=== PATIENT | female | born 1950 | race Caucasian/White ===

== ENCOUNTER → 2018-03-20 | Outpatient (CLI) | payer OTHER | END | disposition home or self-care (01) | LOC: PLD 07:59 → LAB SHORT 07:59 | DX: N84.0 Polyp of corpus uteri (principal); N84.1 Polyp of cervix uteri; N95.0 Postmenopausal bleeding | CPT/HCPCS: 88305 ==

== ENCOUNTER 2018-11-27 11:46 | Day surgery (SDC) | payer OTHER ==
[~2018-11-27] VITALS: Ht 152.4 cm; Wt 50.4 kg
[2018-11-27] MEDS ORDERED: OXYB5 (12:18)
[2018-11-27] MEDS ORDERED: ANASTROZOLE5 GM (12:18)
== END 2018-11-27 13:50 | disposition home or self-care (01) ==
LOC: ORSCSDS 11:46
PROVIDERS: Surgery
PROC: 0DJ08ZZ Inspection of Upper Intestinal Tract, Via Natural or Artificial Opening Endoscopic (ICD-10-PCS; principal; 2018-11-27 13:00)
DX: Z85.09 Personal history of malignant neoplasm of other digestive organs (principal); G47.30 Sleep apnea, unspecified; E78.00 Pure hypercholesterolemia, unspecified; E78.5 Hyperlipidemia, unspecified; G47.33 Obstructive sleep apnea (adult) (pediatric); Z79.82 Long term (current) use of aspirin; Z79.899 Other long term (current) drug therapy
CPT/HCPCS: J7120

== ENCOUNTER → 2019-05-14 | Outpatient (CLI) | payer OTHER ==
[~2019-05-14] MED LIST: ANASTROZOLE5 GM; OXYB5
[2019-05-14 13:01] LABS: Appearance, Urine Clear (Clear); Bilirubin, Urine Neg (Neg); Blood, Urine 3+ (Neg); Color, Urine Yellow (P-Yellow); Glucose Qualitative, Urine Neg (Neg); Ketones, Urine Neg (Neg); Leukocyte Esterase, Urine 3+ (Neg); Nitrite, Urine Pos (Neg); Protein, Urine 1+ (Neg); Urobilinogen, Urine NORM (Normal)
[2019-05-14 13:30] LABS: Bacteria Many /hpf; Squamous Epithelial Cells Rare /hpf (Few)
[2019-05-14 13:31] LABS: Mucus Light ({null, 0-Heavy})
== END | disposition home or self-care (01) ==
LOC: LAB SRC 09:00 → LAB SHORT 09:00
PROVIDERS: Registered Nurse
DX: R31.9 Hematuria, unspecified (principal)
CPT/HCPCS: 81001; 87077; 87086; 87186

== ENCOUNTER → 2019-07-05 | Outpatient (CLI) | payer OTHER ==
[2019-07-05 19:41] LABS: Appearance, Urine Clear (Clear); Bilirubin, Urine Neg (Neg); Blood, Urine Neg (Neg); Color, Urine Yellow (P-Yellow); Glucose Qualitative, Urine Neg (Neg); Ketones, Urine Neg (Neg); Leukocyte Esterase, Urine 2+ (Neg); Nitrite, Urine Neg (Neg); Protein, Urine Neg (Neg); Specific Gravity, Urine 1.005 (1.003-1.022); Urobilinogen, Urine NORM (Normal)
[2019-07-05 19:43] LABS: Bacteria Few /hpf; Red Blood Cells, Urine 0-2 /hpf (0-2); Squamous Epithelial Cells Few /hpf (Few)
== END | disposition home or self-care (01) ==
LOC: LAB SHORT 18:39 → LAB 18:39
PROVIDERS: Registered Nurse
DX: R82.998 Other abnormal findings in urine (principal)
CPT/HCPCS: 81001; 87077; 87086; 87186

== ENCOUNTER → 2019-10-18 | Outpatient (CLI) | payer OTHER ==
[2019-10-18 13:41] LABS: Bilirubin, Urine Neg (Neg); Blood, Urine Neg (Neg); Glucose Qualitative, Urine Neg (Neg); Ketones, Urine Neg (Neg); Leukocyte Esterase, Urine Neg (Neg); Nitrite, Urine Neg (Neg); Protein, Urine Neg (Neg); Urobilinogen, Urine NORM (Normal)
[2019-10-18 14:22] LABS: Appearance, Urine Clear (Clear); Color, Urine Yellow (P-Yellow)
== END | disposition home or self-care (01) ==
LOC: LAB SHORT 10:45 → LAB 10:45
PROVIDERS: Family Medicine
DX: R35.0 Frequency of micturition (principal); R82.998 Other abnormal findings in urine
CPT/HCPCS: 81003

== ENCOUNTER 2019-12-23 06:01 | Day surgery (SDC) | payer OTHER ==
[~2019-12-23] VITALS: Ht 152.4 cm; Wt 47.5 kg
[~2019-12-23 06:01] MED LIST changes: -ANASTROZOLE5 GM; +ANASTROZOLE5 GM PO; -OXYB5; +OXYB5 PO
== END 2019-12-23 10:18 | disposition home or self-care (01) ==
LOC: ORSCMMR 06:01 → ORD 07:30 → ORSCMMR 10:18
PROVIDERS: Surgery
PROC: 07B60ZX Excision of Left Axillary Lymphatic, Open Approach, Diagnostic (ICD-10-PCS; principal; 2019-12-23 07:30)
DX: C77.3 Secondary and unspecified malignant neoplasm of axilla and upper limb lymph nodes (principal); Z85.3 Personal history of malignant neoplasm of breast; Z79.899 Other long term (current) drug therapy
CPT/HCPCS: 88305; J0690; J1100; J1885; J2250; J2405; J2704; J3010; J7120; Q9968

== ENCOUNTER 2020-01-20 10:55 | Day surgery (SDC) | payer OTHER ==
[~2020-01-20] VITALS: Ht 152.4 cm; Wt 48.0 kg
[2020-01-20] MEDS ORDERED: PROBIOTIC250 MG (11:18)
[2020-01-20] MEDS ORDERED: Hair, Skin & N1 EACH PO (11:18)
[2020-01-20] MEDS ORDERED: METAMUCIL660 GM (11:19)
--- NOTE | 2020-01-20 14:34 | NUR ---
DISCHARGE Patient up to Ambulate independently. Gait steady. Discharge instructions reviewed with patient. Patient verbalizes understanding. Copy given to patient to take home. Dressing to procedure site clean, dry, intact with no visible drainage, swelling, erythema or bruising noted. Patient States Post-Procedure ride home has been arranged. Discharged via wheelchair to private car for ride home. PT STATES PAIN IS GETTING A LITTLE BETTER PT DENIES N/V HARD COPY OF RX GIVEN TO PT
--- NOTE | 2020-01-21 10:17 | NUR ---
01/21/20 1017 Swati Savage VERIFICATIONS: EDIT CHART.
== END 2020-01-20 22:45 | disposition home or self-care (01) ==
LOC: ORSCMMR 10:55 → ORD 12:30 → ORSCMMR 12:30
PROVIDERS: Surgery
PROC: 0JH60WZ Insertion of Totally Implantable Vascular Access Device into Chest Subcutaneous Tissue and Fascia, Open Approach (ICD-10-PCS; principal; 2020-01-20 12:30)
DX: C77.9 Secondary and unspecified malignant neoplasm of lymph node, unspecified (principal); G47.33 Obstructive sleep apnea (adult) (pediatric); E78.00 Pure hypercholesterolemia, unspecified
CPT/HCPCS: 77001; C1788; J0690; J1100; J1642; J2250; J2405; J2704; J7120

== ENCOUNTER → 2020-02-04 | Outpatient (CLI) | payer OTHER ==
[~2020-02-04] MED LIST changes: +Hair, Skin & N1 EACH PO; +METAMUCIL660 GM; +PROBIOTIC250 MG
[2020-02-04 15:23] LABS: Hematocrit 33.1 % (33.0-51.0); Hemoglobin 10.7 g/dL (11.5-16.0); Mean Corpuscular HGB Conc 32.3 g/dL (31.5-36.5); Mean Platelet Volume 9.1 fL (9.1-12.4); NRBC ABSOLUTE 0.08 K/mm3 (0.00-0.02); NRBC Auto 0.4 /100 WBC (0.0-0.2); Platelet Count 249 K/mm3 (150-400); RDW Coefficient Variation 12.8 % (11.7-14.2); RDW Standard Deviation 43.9 fL (35.1-46.3); Red Blood Cell Count 3.45 M/mm3 (3.80-5.20)
[2020-02-04 15:24] LABS: Mean Corpuscular Volume 96 fL (80-100)
[2020-02-04 15:49] LABS: BAND PERCENT MAN 14 % (0-8); BASOPHILS PERCENT MAN 0 % (0-2); EOSINOPHILS PERCENT MAN 0 % (0-6); LYMPHOCYTES ABSOLUTE MAN 0.44 K/mm3 (0.84-5.20); LYMPHOCYTES PERCENT MAN 2 % (21-46); METAMYELOCYTE ABSOLUTE MAN 0.44 K/mm3 (0.00-0.00); METAMYELOCYTE PERCENT MAN 2 % (0-0); MONOCYTES ABSOLUTE MAN 0.66 K/mm3 (0.16-1.47); MONOCYTES PERCENT MAN 3 % (4-13); MYELOCYTE ABSOLUTE MAN 0.44 K/mm3 (0.00-0.00); MYELOCYTE PERCENT MAN 2 % (0-0); NEUTROPHILS ABSOLUTE MAN 20.11 K/mm3 (1.96-9.15); SEG NEUTROPHILS PERCENT MAN 77 % (41-73); TOTAL CELLS COUNTED 100
== END | disposition home or self-care (01) ==
LOC: LAB 14:59 → LAB SHORT 14:59
PROVIDERS: Internal Medicine Hematology & Oncology
DX: C50.919 Malignant neoplasm of unspecified site of unspecified female breast (principal)
CPT/HCPCS: 85025

== ENCOUNTER 2020-02-26 07:46 | Day surgery (SDC) | payer OTHER ==
[~2020-02-26] VITALS: Ht 149.9 cm; Wt 46.9 kg
--- NOTE | 2020-02-26 08:48 | NUR ---
Ambulatory in Day Surgery. Surgical site prepped with 2% Chlorhexidine cloth wipe. History, Chart, Medications and Allergies reviewed before start of procedure. Lungs clear T/O to Auscultation. Patient confirms NPO status and agrees with scheduled surgery. Patient reports completing Chlorhexadine shower X2 prior to admission to hospital. Pre-Op teaching done. Pt verbalizes understanding. Patient States Post-Procedure ride home has been arranged.
--- NOTE | 2020-02-26 12:57 | NUR ---
Dressing to procedure site clean, dry, intact with no visible drainage, swelling, erythema or bruising noted. TOLERATED PO WELL. Patient States Post-Procedure ride home has been arranged. Discharge instructions reviewed with patient. Patient verbalizes understanding. Copy given to patient to take home.
== END 2020-02-26 12:38 | disposition home or self-care (01) ==
LOC: ORSCMMR 07:46 → ORD 09:15 → ORSCMMR 09:15
PROVIDERS: Surgery
PROC: 05HM33Z Insertion of Infusion Device into Right Internal Jugular Vein, Percutaneous Approach (ICD-10-PCS; principal; 2020-02-26 09:15)
PROC: B5131ZA Fluoroscopy of Right Jugular Veins using Low Osmolar Contrast, Guidance (ICD-10-PCS; principal; 2020-02-26 09:15)
DX: T82.524A Displacement of infusion catheter, initial encounter (principal); Z85.3 Personal history of malignant neoplasm of breast; G47.33 Obstructive sleep apnea (adult) (pediatric); Z79.899 Other long term (current) drug therapy
CPT/HCPCS: 77001; C1788; J0690; J1100; J1642; J2250; J2370; J2405; J2704; J3010; J7120

== ENCOUNTER → 2020-06-16 | Outpatient (CLI) | payer OTHER | LOC: LAB SHORT 13:11 → LAB 13:11 | DX: L08.9 Local infection of the skin and subcutaneous tissue, unspecified (principal); D22.61 Melanocytic nevi of right upper limb, including shoulder; D22.62 Melanocytic nevi of left upper limb, including shoulder; L60.9 Nail disorder, unspecified; L82.1 Other seborrheic keratosis; D22.5 Melanocytic nevi of trunk; D22.71 Melanocytic nevi of right lower limb, including hip; D22.72 Melanocytic nevi of left lower limb, including hip; D18.01 Hemangioma of skin and subcutaneous tissue; D36.14 Benign neoplasm of peripheral nerves and autonomic nervous system of thorax; D36.12 Benign neoplasm of peripheral nerves and autonomic nervous system, upper limb, including shoulder; L81.4 Other melanin hyperpigmentation; Z71.89 Other specified counseling; Z80.8 Family history of malignant neoplasm of other organs or systems | CPT/HCPCS: 87070; 87077; 87186; 87205 ==

== ENCOUNTER → 2021-03-12 | Outpatient (CLI) | payer OTHER ==
[2021-03-12 14:51] LABS: C DIFFICILE DNA NEGATIVE (Negative)
[2021-03-12 20:49] LABS: Adenovirus F 40/41 Not Detected (NOT DETECT); Astrovirus Not Detected (NOT DETECT); Campylobacter Sp Not Detected (NOT DETECT); Cryptosporidium Not Detected (NOT DETECT); Cyclospora Cayetanensis Not Detected (NOT DETECT); E. Coli O157 Not Detected (NOT DETECT); Entamoeba Histolytica Not Detected (NOT DETECT); Enteroaggregative E. coli-EAEC Not Detected (NOT DETECT); Enteropathogenic E. coli-EPEC Not Detected (NOT DETECT); Enterotoxigenic E. coli-ETEC Not Detected (NOT DETECT); Giardia Lamblia Not Detected (NOT DETECT); Norovirus GI/GII Not Detected (NOT DETECT); Plesiomonas Shigelloides Not Detected (NOT DETECT); Rotavirus A Not Detected (NOT DETECT); Salmonella Sp Not Detected (NOT DETECT); Sapovirus Not Detected (NOT DETECT); Shiga Toxin-prod E. coli-STEC Not Detected (NOT DETECT); Shigella/Enteroin E. coli-EIEC Not Detected (NOT DETECT); Vibrio Cholerae Not Detected (NOT DETECT); Vibrio Sp Not Detected (NOT DETECT); Yersinia Enterocolitica Not Detected (NOT DETECT)
== END | disposition home or self-care (01) ==
LOC: LAB SHORT 08:00
PROVIDERS: Family Medicine; Registered Nurse Oncology
DX: R19.7 Diarrhea, unspecified (principal)
CPT/HCPCS: 0097U; 87015; 87045; 87046; 87205; 87324; 87493; 87899

== ENCOUNTER → 2021-04-06 | Outpatient (CLI) | payer OTHER | LOC: LAB SHORT 17:40 → LAB 17:40 | DX: N39.0 Urinary tract infection, site not specified (principal) | CPT/HCPCS: 87077; 87086; 87186 ==

== ENCOUNTER 2021-11-22 10:30 | Emergency (ER) | payer OTHER ==
[~2021-11-22] VITALS: Ht 152.4 cm; Wt 47.6 kg
[2021-11-22 12:05] LABS: Influenza A, PCR NEGATIVE (NEGATIVE); Influenza B, PCR NEGATIVE (NEGATIVE); Resp Syncytial Virus, PCR NEGATIVE (NEGATIVE); SARS-Cov-2 (COVID-19) PCR, MMC NEGATIVE (NEGATIVE)
[2022-01-08] MEDS ORDERED: VISBIOME 112.51 EACH PO (14:23)
[2022-01-08] MEDS ORDERED: CEFD300 PO (14:24)
[2022-01-08] MEDS ORDERED: ANASTROZOLE1 M7 PO (14:26)
[2022-01-19] MEDS ORDERED: IBRANCE100 MG PO (13:04)
[2022-01-19] MEDS ORDERED: BENZ100A PO (13:04)
[2022-01-19] MEDS ORDERED: MORPHINE SL (13:06)
[2022-01-19] MEDS ORDERED: Prednisone10 MG PO (13:07)
[2022-02-14] MEDS ORDERED: ANASTROZOLE1 M7 PO (16:30)
[2022-02-14] MEDS ORDERED: Morphine S10 MG/5 ML PO (16:31)
[2022-02-14] MEDS ORDERED: Ondansetron Odt8 MG MM (16:32)
[2022-02-14] MEDS ORDERED: POTCHL20ER PO (16:34)
[2022-02-14] MEDS ORDERED: IBRANCE100 M1 PO (16:36)
[2022-02-14] MEDS ORDERED: TRAM50 PO (16:37)
== END 2021-11-22 14:00 | disposition home or self-care (01) ==
LOC: ER 10:30
PROVIDERS: Emergency Medicine
DX: J90 Pleural effusion, not elsewhere classified (principal); Z20.822 Contact with and (suspected) exposure to COVID-19; Z88.5 Allergy status to narcotic agent; Z88.8 Allergy status to other drugs, medicaments and biological substances; C50.912 Malignant neoplasm of unspecified site of left female breast; C50.812 Malignant neoplasm of overlapping sites of left female breast
CPT/HCPCS: 0241U; 32555; 36415; 71045; 71046; 85610; 85730; 96372; 99285-25; A9270; J3010

== ENCOUNTER 2021-12-31 10:30 | Emergency (ER) | payer OTHER ==
[~2021-12-31] VITALS: Ht 152.4 cm; Wt 46.3 kg
[2021-12-31 11:26] LABS: Hematocrit 33.1 % (33.0-51.0); Hemoglobin 11.6 g/dL (11.5-16.0); Mean Corpuscular HGB 35.2 pg (26.0-34.0); Mean Corpuscular Volume 100 fL (80-100); Mean Platelet Volume 9.6 fL (9.1-12.4); Platelet Count 196 K/mm3 (150-400); RDW Coefficient Variation 20.6 % (11.7-14.2); White Blood Cell Count 1.91 K/mm3 (4.00-11.30)
[2021-12-31 11:50] LABS: Alanine Aminotransfer (ALT/SGP 21 U/L (12-78); Albumin, Blood 2.7 g/dL (3.4-5.0); Albumin/Globulin Ratio 0.8 (0.8-1.8); Alk Phos 57 U/L (50-136); Anion Gap 6 mmol/L (6-16); Aspartate Aminotrans (AST/SGOT 16 U/L (12-37); Bilirubin, Total 0.6 mg/dL (0.1-1.0); Blood Urea Nitrogen 13 mg/dL (8-24); CO2, Blood 28 mmol/L (21-32); Chloride, Blood 104 mmol/L (98-108); Creatinine, Blood 0.81 mg/dL (0.40-1.00); Globulin, Blood 3.6 g/dL (2.2-4.0); Glomerular Filtration Rate >60 (60-); Glucose, Blood 88 mg/dL (70-99); Sodium, Blood 138 mmol/L (136-145); Total Protein, Blood 6.3 g/dL (6.4-8.2)
[2021-12-31 12:06] LABS: BAND PERCENT MAN 1 % (0-8); BASOPHILS ABSOLUTE MAN 0.01 K/mm3 (0.00-0.23); BASOPHILS PERCENT MAN 1 % (0-2); EOSINOPHILS PERCENT MAN 0 % (0-6); LYMPHOCYTES ABSOLUTE MAN 0.76 K/mm3 (0.84-5.20); LYMPHOCYTES PERCENT MAN 40 % (21-46); MONOCYTES ABSOLUTE MAN 0.03 K/mm3 (0.16-1.47); MONOCYTES PERCENT MAN 2 % (4-13); NEUTROPHILS ABSOLUTE MAN 1.08 K/mm3 (1.96-9.15); SEG NEUTROPHILS PERCENT MAN 56 % (41-73); TOTAL CELLS COUNTED 100
[2021-12-31 13:19] LABS: International Normalized Ratio 1.04; Prothrombin Time Results 10.9 Sec (9.7-11.5)
[2021-12-31 14:16] LABS: Influenza A, PCR NEGATIVE (NEGATIVE); Influenza B, PCR NEGATIVE (NEGATIVE); Resp Syncytial Virus, PCR NEGATIVE (NEGATIVE); SARS-Cov-2 (COVID-19) PCR, MMC NEGATIVE (NEGATIVE)
== END 2021-12-31 17:40 | disposition home or self-care (01) ==
LOC: ER 10:30
PROVIDERS: Emergency Medicine; Physician Assistant
DX: J90 Pleural effusion, not elsewhere classified (principal); C34.90 Malignant neoplasm of unspecified part of unspecified bronchus or lung; Z20.822 Contact with and (suspected) exposure to COVID-19; Z88.6 Allergy status to analgesic agent; Z88.5 Allergy status to narcotic agent; Z79.899 Other long term (current) drug therapy; C50.919 Malignant neoplasm of unspecified site of unspecified female breast
CPT/HCPCS: 0241U; 32555; 36415; 71045; 71046; 80053; 83880; 84484; 85025; 85610; 85730; 93005; 93010; 96374; 99285-25; J3010

== ENCOUNTER → 2022-01-04 | Outpatient (CLI) | payer OTHER | END | disposition home or self-care (01) | LOC: LAB SHORT 10:38 → LAB 10:38 | DX: M54.50 Low back pain, unspecified (principal); R30.9 Painful micturition, unspecified | CPT/HCPCS: 87077; 87086; 87186 ==

== ENCOUNTER 2022-01-20 07:23 | Day surgery (SDC) | payer OTHER ==
[~2022-01-20] VITALS: Ht 152.4 cm; Wt 45.3 kg
[~2022-01-20 07:23] MED LIST changes: +ANASTROZOLE1 M7 PO; +BENZ100A PO; +CEFD300 PO; +IBRANCE100 MG PO; +MORPHINE SL; +Prednisone10 MG PO; +VISBIOME 112.51 EACH PO
[2022-01-20] MEDS ORDERED: POTA10T PO (08:45)
[2022-01-20] MEDS ORDERED: FURO40 PO (08:45)
--- NOTE | 2022-01-20 11:43 | NUR ---
PT AXOX4, ABLE TO REPOSITION SELF IN BED. REQUESTING PO FLUIDS AND FOOD. PT STATES 1/10 ACHING PAIN IN R NECK OVER INCISION SITE. PATIENT HAS THREE INCISION SITES, ONE ON NECK THAT IS COVERED WITH TWO STERI STRIPS THAT ARE DRY AND INTACT WITH SCANT AMOUNT OF DRY SANGUINEOUS MATERIAL. ONE DRESSING OVER SECOND PROCEDURE SITE (MEDIPORT) ON RIGHT CHEST THAT IS 2X2 GAUZE COVERED WITH CLEAR WINDOW TAPE AND IT IS CLEAN, DRY AND INTACT. ONE MORE INCISION SITE IS ON LEFT ABDOMEN FOR PLEURX CATHETER, HAS FOAM DRESSING WITH WINDOW TAPE AND IS CLEAN, DRY AND INTACT.
--- NOTE | 2022-01-20 11:49 | NUR ---
PT IS RESTING COMFORTABLY IN BED TOLERATING PO FLUIDS AND FOOD. PT CAME TO STEPDOWN ON 4 L O2 NASAL CANNULA. OXYGEN SATS SUSTAIN IN MID 90'S WHILE PATIENT HAS NASAL CANNULA ON, DROPS TO MID 80'S IF SHE REMOVES IT AFTER ONE MINUTE.
--- NOTE | 2022-01-20 12:22 | NUR ---
PT RESTING IN BED, VISITING WITH AT BEDSIDE. PT IS AXOX4, ABLE TO REPOSITION IN BED. PATIENTS LUNGS ARE CLEAR BILATERALLY, LEFT LUNG IS DIMINISHED THROUGHOUT.
--- NOTE | 2022-01-20 12:52 | NUR ---
KERRI AYOUB RN FROM [facility] IN TO EDUCATE PT AND ON PLEURX CATH.
--- NOTE | 2022-01-20 12:53 | NUR ---
DRESSING TO MEDIPORT D/I. SMALL AMOUNT OF RED DRAINAGE ON PLEURX CATH SITE.
--- NOTE | 2022-01-20 15:18 | NUR ---
Pt in OR getting a pleurex drain placed. Pt had left lung pleurex placed. Carola realys more shortness of breath and difficulty getting in for treatment. Review of pleurex drain with and pt. Pt does not have home health set up. Review of all three agencies and the need for early intake. Pt would like [facility] and if not available who ever come. She has a friend who used to work for [facility]. Called [facility] they are not taking appointments at this time. [facility] is three weeks out. Called dr vega office to review and [facility] is ok. Review of pt with [facility] intake nurse. If pt fails this last medication she will need hospice. [facility] symptom managment and pleurex managment. Advised that if [facility] cannot manage need to schedule appointment at infusion clinic and Staff from clinic will drain pt. And we will repeat teaching. will follow up with pt and packet faxed. Advised Dr ernandez office to fax information they will need to provide perscription for volume and frequency since pt not seen at surgeons office.
--- NOTE | 2022-01-20 15:53 | NUR ---
Called doctor namrata office to review plan of care and set up for pleurex care.
== END 2022-01-20 13:40 | disposition home or self-care (01) ==
LOC: ORSCMMR 07:23 → ORD 07:30 → ORSCMMR 08:45 → ORD 08:45 → ORSCMMR 13:40
PROVIDERS: Surgery
PROC: 0W9B30Z Drainage of Left Pleural Cavity with Drainage Device, Percutaneous Approach (ICD-10-PCS; principal; 2022-01-20 08:45)
PROC: 0JH60WZ Insertion of Totally Implantable Vascular Access Device into Chest Subcutaneous Tissue and Fascia, Open Approach (ICD-10-PCS; principal; 2022-01-20 08:45)
DX: C50.912 Malignant neoplasm of unspecified site of left female breast (principal); J91.0 Malignant pleural effusion; Z78.9 Other specified health status; E78.00 Pure hypercholesterolemia, unspecified; G47.33 Obstructive sleep apnea (adult) (pediatric); Z99.81 Dependence on supplemental oxygen; Z79.899 Other long term (current) drug therapy
CPT/HCPCS: 77001; C1729; C1788; J0690; J1100; J1642; J2250; J2405; J2704; J3010; J7120

== ENCOUNTER 2022-02-01 09:14 | Day surgery (SDC) | payer OTHER ==
[~2022-02-01] VITALS: Ht 152.4 cm; Wt 44.7 kg
[~2022-02-01 09:14] MED LIST changes: +FURO40 PO; +POTA10T PO
--- NOTE | 2022-02-01 11:29 | NUR ---
02/01/22 Trinity9 Akosua Huerta LEFT CATH SIDE DRESSED AND INTACT TO LEFT ABDOMEN. DRESSING REMOVED AND SITE PREPPED PER SURGEON FOR REPOSITIONING. SITE WITHOUT S/S OF INFECTION.
--- NOTE | 2022-02-01 12:40 | NUR ---
02/01/22 1240 Antonella Ellison PT IN THE RECLINER WITH LEGS ELEVATED. AT CHAIRSIDE. VSS. PT DENIES PAIN AND NAUSEA AT THIS TIME. PT TOLERATING PO FLUIDS WELL. CARE TURNED OVER TO NURSE BAILEY.
== END 2022-02-01 13:16 | disposition home or self-care (01) ==
LOC: ORSCSDS 09:14
PROVIDERS: Surgery
PROC: 0WPB30Z Removal of Drainage Device from Left Pleural Cavity, Percutaneous Approach (ICD-10-PCS; principal; 2022-02-01 10:30)
PROC: 0W9930Z Drainage of Right Pleural Cavity with Drainage Device, Percutaneous Approach (ICD-10-PCS; principal; 2022-02-01 10:30)
PROC: 0W9B30Z Drainage of Left Pleural Cavity with Drainage Device, Percutaneous Approach (ICD-10-PCS; principal; 2022-02-01 10:30)
DX: C50.919 Malignant neoplasm of unspecified site of unspecified female breast (principal); J91.0 Malignant pleural effusion; G47.33 Obstructive sleep apnea (adult) (pediatric); Z99.81 Dependence on supplemental oxygen; Z79.899 Other long term (current) drug therapy
CPT/HCPCS: C1729; J0690; J1100; J2250; J2370; J2405; J2704; J3010; J7120

== ENCOUNTER → 2022-02-08 | Outpatient (CLI) | payer OTHER ==
[2022-02-08 12:23] LABS: Hematocrit 23.1 % (33.0-51.0); Hemoglobin 7.9 g/dL (11.5-16.0); Mean Corpuscular HGB 36.2 pg (26.0-34.0); Mean Corpuscular HGB Conc 34.2 g/dL (31.5-36.5); Mean Corpuscular Volume 106 fL (80-100); Mean Platelet Volume 10.4 fL (9.1-12.4); Platelet Count 209 K/mm3 (150-400); RDW Coefficient Variation 15.5 % (11.7-14.2); RDW Standard Deviation 60.3 fL (35.1-46.3); Red Blood Cell Count 2.18 M/mm3 (3.80-5.20); White Blood Cell Count 3.29 K/mm3 (4.00-11.30)
[2022-02-08 12:43] LABS: Albumin, Blood 2.1 g/dL (3.4-5.0); Albumin/Globulin Ratio 0.6 (0.8-1.8); Bilirubin, Total 0.7 mg/dL (0.1-1.0); Bun/Creatinine Ratio 24.4 (12.0-20.0); Calcium, Blood 8.7 mg/dL (8.5-10.1); Creatinine, Blood 0.61 mg/dL (0.40-1.00); Globulin, Blood 3.3 g/dL (2.2-4.0); Potassium, Blood 3.3 mmol/L (3.5-5.5); Total Protein, Blood 5.4 g/dL (6.4-8.2)
[2022-02-08 12:57] LABS: BAND PERCENT MAN 8 % (0-8); BASOPHILS ABSOLUTE MAN 0.03 K/mm3 (0.00-0.23); BASOPHILS PERCENT MAN 1 % (0-2); EOSINOPHILS ABSOLUTE MAN 0.03 K/mm3 (0.00-0.68); EOSINOPHILS PERCENT MAN 1 % (0-6); LYMPHOCYTES ABSOLUTE MAN 0.82 K/mm3 (0.84-5.20); LYMPHOCYTES PERCENT MAN 25 % (21-46); MONOCYTES ABSOLUTE MAN 0.32 K/mm3 (0.16-1.47); MONOCYTES PERCENT MAN 10 % (4-13); NEUTROPHILS ABSOLUTE MAN 2.07 K/mm3 (1.96-9.15); SEG NEUTROPHILS PERCENT MAN 55 % (41-73); TOTAL CELLS COUNTED 100
== END ==
LOC: LAB SHORT 11:46
PROVIDERS: Internal Medicine Hematology & Oncology
DX: C50.919 Malignant neoplasm of unspecified site of unspecified female breast (principal)
CPT/HCPCS: 80053; 85025

== ENCOUNTER 2022-02-15 00:45 | Day surgery (SDC) | payer OTHER ==
[~2022-02-15 00:45] MED LIST changes: +IBRANCE100 M1 PO; +Morphine S10 MG/5 ML PO; +Ondansetron Odt8 MG MM; +POTCHL20ER PO; +TRAM50 PO
[2022-02-15 09:56] LABS: BASOPHILS ABSOLUTE AUTO 0.07 K/mm3 (0.00-0.23); BASOPHILS PERCENT AUTO 1 % (0-2); EOSINOPHILS ABSOLUTE AUTO 0.03 K/mm3 (0.00-0.68); EOSINOPHILS PERCENT AUTO 1 % (0-6); Hematocrit 33.5 % (33.0-51.0); Hemoglobin 11.3 g/dL (11.5-16.0); IMMATURE GRAN ABSOLUTE AUTO 0.07 K/mm3 (0.00-0.10); IMMATURE GRAN PERCENT AUTO 1 % (0-1); LYMPHOCYTES ABSOLUTE AUTO 0.79 K/mm3 (0.84-5.20); LYMPHOCYTES PERCENT AUTO 16 % (21-46); MONOCYTES ABSOLUTE AUTO 0.45 K/mm3 (0.16-1.47); MONOCYTES PERCENT AUTO 9 % (4-13); Mean Corpuscular HGB 36.1 pg (26.0-34.0); Mean Corpuscular HGB Conc 33.7 g/dL (31.5-36.5); Mean Corpuscular Volume 107 fL (80-100); Mean Platelet Volume 8.8 fL (9.1-12.4); NEUTROPHILS ABSOLUTE AUTO 3.66 K/mm3 (1.96-9.15); NEUTROPHILS PERCENT AUTO 72 % (41-73); Platelet Count 236 K/mm3 (150-400); RDW Coefficient Variation 15.2 % (11.7-14.2); RDW Standard Deviation 59.4 fL (35.1-46.3); Red Blood Cell Count 3.13 M/mm3 (3.80-5.20); White Blood Cell Count 5.07 K/mm3 (4.00-11.30)
[2022-02-15 10:21] LABS: Albumin/Globulin Ratio 0.6 (0.8-1.8); Bilirubin, Total 0.4 mg/dL (0.1-1.0); Bun/Creatinine Ratio 24.5 (12.0-20.0); Calcium, Blood 8.8 mg/dL (8.5-10.1); Creatinine, Blood 0.49 mg/dL (0.40-1.00); Globulin, Blood 3.3 g/dL (2.2-4.0); Potassium, Blood 3.9 mmol/L (3.5-5.5); Total Protein, Blood 5.3 g/dL (6.4-8.2)
== END 2022-02-15 10:05 | disposition home or self-care (01) ==
LOC: ATC 00:45
PROVIDERS: Internal Medicine Hematology & Oncology
DX: C50.912 Malignant neoplasm of unspecified site of left female breast (principal); C79.70 Secondary malignant neoplasm of unspecified adrenal gland; C77.1 Secondary and unspecified malignant neoplasm of intrathoracic lymph nodes; C77.3 Secondary and unspecified malignant neoplasm of axilla and upper limb lymph nodes; Z45.2 Encounter for adjustment and management of vascular access device
CPT/HCPCS: 80053; 85025; J1642

== ENCOUNTER 2022-02-28 01:00 | Day surgery (SDC) | payer OTHER ==
[2022-02-28 10:17] LABS: BASOPHILS ABSOLUTE AUTO 0.01 K/mm3 (0.00-0.23); BASOPHILS PERCENT AUTO 1 % (0-2); EOSINOPHILS ABSOLUTE AUTO 0.02 K/mm3 (0.00-0.68); EOSINOPHILS PERCENT AUTO 1 % (0-6); Hematocrit 28.8 % (33.0-51.0); Hemoglobin 9.7 g/dL (11.5-16.0); Mean Corpuscular HGB 35.1 pg (26.0-34.0); Mean Corpuscular HGB Conc 33.7 g/dL (31.5-36.5); Mean Corpuscular Volume 104 fL (80-100); Mean Platelet Volume 9.3 fL (9.1-12.4); Platelet Count 148 K/mm3 (150-400); RDW Coefficient Variation 14.5 % (11.7-14.2); RDW Standard Deviation 55.5 fL (35.1-46.3); Red Blood Cell Count 2.76 M/mm3 (3.80-5.20); White Blood Cell Count 1.56 K/mm3 (4.00-11.30)
[2022-02-28 10:25] LABS: IMMATURE GRAN PERCENT AUTO 0 % (0-1); LYMPHOCYTES ABSOLUTE AUTO 0.72 K/mm3 (0.84-5.20); LYMPHOCYTES PERCENT AUTO 46 % (21-46); MONOCYTES ABSOLUTE AUTO 0.34 K/mm3 (0.16-1.47); MONOCYTES PERCENT AUTO 22 % (4-13); NEUTROPHILS ABSOLUTE AUTO 0.47 K/mm3 (1.96-9.15); NEUTROPHILS PERCENT AUTO 30 % (41-73)
[2022-02-28 10:28] LABS: Albumin, Blood 1.9 g/dL (3.4-5.0); Albumin/Globulin Ratio 0.6 (0.8-1.8); Bilirubin, Total 0.4 mg/dL (0.1-1.0); Bun/Creatinine Ratio 26.7 (12.0-20.0); Calcium, Blood 8.3 mg/dL (8.5-10.1); Creatinine, Blood 0.41 mg/dL (0.40-1.00); Globulin, Blood 3.4 g/dL (2.2-4.0); Potassium, Blood 3.4 mmol/L (3.5-5.5); Total Protein, Blood 5.3 g/dL (6.4-8.2)
== END 2022-02-28 09:59 | disposition home or self-care (01) ==
LOC: ATC 01:00
PROVIDERS: Internal Medicine Hematology & Oncology
DX: C50.912 Malignant neoplasm of unspecified site of left female breast (principal); C79.70 Secondary malignant neoplasm of unspecified adrenal gland; C77.1 Secondary and unspecified malignant neoplasm of intrathoracic lymph nodes; C77.3 Secondary and unspecified malignant neoplasm of axilla and upper limb lymph nodes; Z88.5 Allergy status to narcotic agent; Z88.6 Allergy status to analgesic agent; Z17.0 Estrogen receptor positive status [ER+]; M81.0 Age-related osteoporosis without current pathological fracture
CPT/HCPCS: 36591; 80053; 85025; J1642

== ENCOUNTER 2022-03-07 02:13 | Day surgery (SDC) | payer OTHER ==
[2022-03-07 10:44] LABS: BASOPHILS ABSOLUTE AUTO 0.03 K/mm3 (0.00-0.23); BASOPHILS PERCENT AUTO 0 % (0-2); Hemoglobin 9.8 g/dL (11.5-16.0); LYMPHOCYTES ABSOLUTE AUTO 0.88 K/mm3 (0.84-5.20); LYMPHOCYTES PERCENT AUTO 11 % (21-46); MONOCYTES ABSOLUTE AUTO 0.72 K/mm3 (0.16-1.47); MONOCYTES PERCENT AUTO 9 % (4-13); Mean Corpuscular HGB 35.3 pg (26.0-34.0); Mean Corpuscular HGB Conc 33.8 g/dL (31.5-36.5); Mean Corpuscular Volume 104 fL (80-100); Mean Platelet Volume 10.1 fL (9.1-12.4); Platelet Count 142 K/mm3 (150-400); RDW Standard Deviation 58.1 fL (35.1-46.3); Red Blood Cell Count 2.78 M/mm3 (3.80-5.20); White Blood Cell Count 7.69 K/mm3 (4.00-11.30)
[2022-03-07 10:51] LABS: EOSINOPHILS ABSOLUTE AUTO 0.02 K/mm3 (0.00-0.68); EOSINOPHILS PERCENT AUTO 0 % (0-6); IMMATURE GRAN ABSOLUTE AUTO 0.09 K/mm3 (0.00-0.10); IMMATURE GRAN PERCENT AUTO 1 % (0-1); NEUTROPHILS ABSOLUTE AUTO 5.95 K/mm3 (1.96-9.15); NEUTROPHILS PERCENT AUTO 77 % (41-73)
[2022-03-07 10:59] LABS: Albumin, Blood 1.8 g/dL (3.4-5.0); Albumin/Globulin Ratio 0.6 (0.8-1.8); Bilirubin, Total 0.3 mg/dL (0.1-1.0); Bun/Creatinine Ratio 23.7 (12.0-20.0); Calcium, Blood 8.2 mg/dL (8.5-10.1); Creatinine, Blood 0.38 mg/dL (0.40-1.00); Globulin, Blood 3.1 g/dL (2.2-4.0); Potassium, Blood 3.3 mmol/L (3.5-5.5); Total Protein, Blood 4.9 g/dL (6.4-8.2)
== END 2022-03-07 10:28 | disposition home or self-care (01) ==
LOC: ATC 02:13
PROVIDERS: Internal Medicine Hematology & Oncology
DX: C50.912 Malignant neoplasm of unspecified site of left female breast (principal)
CPT/HCPCS: 36591; 80053; 85025; J1642

== ENCOUNTER 2022-03-21 09:00 | Day surgery (SDC) | payer OTHER ==
[2022-03-21 09:50] LABS: Hematocrit 26.2 % (33.0-51.0); Hemoglobin 8.4 g/dL (11.5-16.0); Mean Corpuscular HGB 33.9 pg (26.0-34.0); Mean Corpuscular HGB Conc 32.1 g/dL (31.5-36.5); Mean Corpuscular Volume 106 fL (80-100); Mean Platelet Volume 10.3 fL (9.1-12.4); NRBC ABSOLUTE 0.03 K/mm3 (0.00-0.02); NRBC Auto 0.2 /100 WBC (0.0-0.2); Platelet Count 162 K/mm3 (150-400); RDW Coefficient Variation 16.2 % (11.7-14.2); RDW Standard Deviation 62.4 fL (35.1-46.3); Red Blood Cell Count 2.48 M/mm3 (3.80-5.20); White Blood Cell Count 14.98 K/mm3 (4.00-11.30)
[2022-03-21 10:07] LABS: Albumin, Blood 1.9 g/dL (3.4-5.0); Albumin/Globulin Ratio 0.6 (0.8-1.8); Bilirubin, Total 0.2 mg/dL (0.1-1.0); Calcium, Blood 8.6 mg/dL (8.5-10.1); Creatinine, Blood 0.38 mg/dL (0.40-1.00); Globulin, Blood 3.1 g/dL (2.2-4.0); Potassium, Blood 3.7 mmol/L (3.5-5.5)
[2022-03-21 10:18] LABS: BAND PERCENT MAN 10 % (0-8); BASOPHILS ABSOLUTE MAN 0.14 K/mm3 (0.00-0.23); BASOPHILS PERCENT MAN 1 % (0-2); EOSINOPHILS PERCENT MAN 0 % (0-6); LYMPHOCYTES ABSOLUTE MAN 0.44 K/mm3 (0.84-5.20); LYMPHOCYTES PERCENT MAN 3 % (21-46); MONOCYTES ABSOLUTE MAN 0.59 K/mm3 (0.16-1.47); MONOCYTES PERCENT MAN 4 % (4-13); MYELOCYTE ABSOLUTE MAN 0.14 K/mm3 (0.00-0.00); MYELOCYTE PERCENT MAN 1 % (0-0); NEUTROPHILS ABSOLUTE MAN 13.63 K/mm3 (1.96-9.15); SEG NEUTROPHILS PERCENT MAN 81 % (41-73); TOTAL CELLS COUNTED 100
== END 2022-03-21 09:30 | disposition home or self-care (01) ==
LOC: ATC 09:00
PROVIDERS: Internal Medicine Hematology & Oncology
DX: C50.912 Malignant neoplasm of unspecified site of left female breast (principal)
CPT/HCPCS: 36591; 80053; 85025; J1642

== ENCOUNTER 2022-03-29 13:51 | Inpatient (IN) | payer OTHER ==
[~2022-03-29] VITALS: Ht 152.4 cm; Wt 42.2 kg
[2022-03-29 17:38] LABS: Hematocrit 30.4 % (33.0-51.0); Hemoglobin 9.8 g/dL (11.5-16.0); Mean Corpuscular HGB 33.1 pg (26.0-34.0); Mean Corpuscular HGB Conc 32.2 g/dL (31.5-36.5); Mean Corpuscular Volume 103 fL (80-100); Mean Platelet Volume 10.9 fL (9.1-12.4); NRBC ABSOLUTE 0.15 K/mm3 (0.00-0.02); NRBC Auto 0.3 /100 WBC (0.0-0.2); Platelet Count 146 K/mm3 (150-400); RDW Standard Deviation 63.7 fL (35.1-46.3); Red Blood Cell Count 2.96 M/mm3 (3.80-5.20); White Blood Cell Count 42.88 K/mm3 (4.00-11.30)
[2022-03-29 17:47] LABS: Albumin, Blood 2.3 g/dL (3.4-5.0); Albumin/Globulin Ratio 0.5 (0.8-1.8); Bilirubin, Total 0.4 mg/dL (0.1-1.0); Bun/Creatinine Ratio 27.2 (12.0-20.0); Creatinine, Blood 0.44 mg/dL (0.40-1.00); Globulin, Blood 4.7 g/dL (2.2-4.0); Potassium, Blood 3.8 mmol/L (3.5-5.5)
[2022-03-29 18:11] LABS: BAND PERCENT MAN 7 % (0-8); BASOPHILS PERCENT MAN 0 % (0-2); EOSINOPHILS PERCENT MAN 0 % (0-6); LYMPHOCYTES ABSOLUTE MAN 1.71 K/mm3 (0.84-5.20); LYMPHOCYTES PERCENT MAN 4 % (21-46); MONOCYTES ABSOLUTE MAN 3.43 K/mm3 (0.16-1.47); MONOCYTES PERCENT MAN 8 % (4-13); MYELOCYTE ABSOLUTE MAN 0.85 K/mm3 (0.00-0.00); MYELOCYTE PERCENT MAN 2 % (0-0); NEUTROPHILS ABSOLUTE MAN 36.87 K/mm3 (1.96-9.15); SEG NEUTROPHILS PERCENT MAN 79 % (41-73); TOTAL CELLS COUNTED 100
[2022-03-30 01:02] LABS: Influenza A, PCR NEGATIVE (NEGATIVE); Influenza B, PCR NEGATIVE (NEGATIVE); Resp Syncytial Virus, PCR NEGATIVE (NEGATIVE); SARS-Cov-2 (COVID-19) PCR, MMC NEGATIVE (NEGATIVE)
[2022-03-30 01:57] LABS: Hematocrit 22.9 % (33.0-51.0); Hemoglobin 7.3 g/dL (11.5-16.0); Mean Corpuscular HGB 32.7 pg (26.0-34.0); Mean Corpuscular HGB Conc 31.9 g/dL (31.5-36.5); Mean Corpuscular Volume 103 fL (80-100); Mean Platelet Volume 10.4 fL (9.1-12.4); NRBC ABSOLUTE 0.09 K/mm3 (0.00-0.02); NRBC Auto 0.3 /100 WBC (0.0-0.2); Platelet Count 131 K/mm3 (150-400); RDW Standard Deviation 63.5 fL (35.1-46.3); Red Blood Cell Count 2.23 M/mm3 (3.80-5.20); White Blood Cell Count 35.77 K/mm3 (4.00-11.30)
[2022-03-30 02:12] LABS: Bun/Creatinine Ratio 25.3 (12.0-20.0); Calcium, Blood 7.8 mg/dL (8.5-10.1); Creatinine, Blood 0.4 mg/dL (0.40-1.00); Potassium, Blood 3.5 mmol/L (3.5-5.5); Total Protein, Blood 5.1 g/dL (6.4-8.2)
[2022-03-30 02:18] LABS: BAND PERCENT MAN 33 % (0-8); BASOPHILS PERCENT MAN 0 % (0-2); EOSINOPHILS PERCENT MAN 0 % (0-6); LYMPHOCYTES ABSOLUTE MAN 1.43 K/mm3 (0.84-5.20); LYMPHOCYTES PERCENT MAN 4 % (21-46); METAMYELOCYTE ABSOLUTE MAN 1.43 K/mm3 (0.00-0.00); METAMYELOCYTE PERCENT MAN 4 % (0-0); MONOCYTES ABSOLUTE MAN 1.78 K/mm3 (0.16-1.47); MONOCYTES PERCENT MAN 5 % (4-13); NEUTROPHILS ABSOLUTE MAN 31.11 K/mm3 (1.96-9.15); SEG NEUTROPHILS PERCENT MAN 54 % (41-73); TOTAL CELLS COUNTED 100
[2022-03-30 04:23] LABS: Source, Urine Clean Catch
[2022-03-30 04:25] LABS: Bilirubin, Urine Neg (Neg); Blood, Urine Neg (Neg); Glucose Qualitative, Urine Neg (Neg); Ketones, Urine 2+ (Neg); Leukocyte Esterase, Urine Neg (Neg); Nitrite, Urine Neg (Neg); Protein, Urine 2+ (Neg); Specific Gravity, Urine 1.015 (1.003-1.022); Urobilinogen, Urine NORM (Normal)
[2022-03-30 04:34] LABS: Appearance, Urine Clear (Clear); Color, Urine Yellow (P-Yellow)
[2022-03-30 04:35] LABS: Bacteria Not Seen /hpf; Red Blood Cells, Urine 0-2 /hpf (0-2); Squamous Epithelial Cells Not Seen /hpf (Few); White Blood Cells, Urine 0-2 /hpf (0-5)
--- NOTE | 2022-03-30 05:08 | NUR ---
HOME PERFORMANCE LABORER SUMMARY PT HAS BEEN ALERT AND COMMUNICATING APPROPRIATELY W STAFF THIS SHIFT. BP WNL AND STABLE. TELE SHOWING ST 100'S THIS SHIFT. O2 SATS >90% ON 2L NC. PT HAS DENIED ANY PAIN OR NAUSEA THIS SHIFT. PT AFEBRILE. PT ABLE TO SLEEP COMFORTABLY FOR MOST OF THE NIGHT. WILL REPORT TO ONCOMING RN.
[2022-03-30 06:34] LABS: Hematocrit 22.1 % (33.0-51.0); Hemoglobin 7.1 g/dL (11.5-16.0); Mean Corpuscular HGB Conc 32.1 g/dL (31.5-36.5); Mean Corpuscular Volume 103 fL (80-100); Mean Platelet Volume 10.3 fL (9.1-12.4); NRBC ABSOLUTE 0.07 K/mm3 (0.00-0.02); NRBC Auto 0.2 /100 WBC (0.0-0.2); Platelet Count 120 K/mm3 (150-400); RDW Standard Deviation 63.7 fL (35.1-46.3); Red Blood Cell Count 2.15 M/mm3 (3.80-5.20); White Blood Cell Count 35.82 K/mm3 (4.00-11.30)
[2022-03-30 06:53] LABS: BAND PERCENT MAN 19 % (0-8); BASOPHILS PERCENT MAN 0 % (0-2); EOSINOPHILS PERCENT MAN 0 % (0-6); LYMPHOCYTES ABSOLUTE MAN 1.07 K/mm3 (0.84-5.20); LYMPHOCYTES PERCENT MAN 3 % (21-46); METAMYELOCYTE ABSOLUTE MAN 0.71 K/mm3 (0.00-0.00); METAMYELOCYTE PERCENT MAN 2 % (0-0); MONOCYTES ABSOLUTE MAN 1.07 K/mm3 (0.16-1.47); MONOCYTES PERCENT MAN 3 % (4-13); MYELOCYTE ABSOLUTE MAN 0.35 K/mm3 (0.00-0.00); MYELOCYTE PERCENT MAN 1 % (0-0); NEUTROPHILS ABSOLUTE MAN 32.59 K/mm3 (1.96-9.15); SEG NEUTROPHILS PERCENT MAN 72 % (41-73); TOTAL CELLS COUNTED 100
[2022-03-30] MEDS ORDERED: Prednisone10 MG PO (10:11)
[2022-03-30] MEDS ORDERED: MELATONIN5 M1 PO (10:11)
--- NOTE | 2022-03-30 11:28 | NUR ---
Brief supportive visit this AM. Pt resting in bed and denies pain at this time. Pt does report pain at times with her respiratory effort. Pt does reports dyspnea at this time. Pt reports being and having no children. She reports spouse is supportive of her needs. Pt reports ability to still get around the house. Reviewed current plan of care. Ended visit to allow Pt to rest. Pt agreeable for continued Palliative Care visits. Palliative Care will remain available for supportive and therapeutic visits.
--- NOTE | 2022-03-30 14:36 | NUR ---
AM NOTE: ALERT AND ORIENTED X4. NEURO WNL. OVERALL VERY WEAK. DENIES NUMBNESS/TINGLING. PERRLA. ABLE TO STAND WITH SBA TO MANAGE LINES AND CORDS TO BSC. ON 2L NASAL CANNULA O2 AT BASELINE SATING MID 90'S. LUNGS SOUNDING COARSE WITH SOME CRACKLES IN BASES. BILATERAL PLEURX DRAINS. PULM CONSULT THIS AFTERNOON. THIS RN DRAINED BOTH PLEURX DRAINS WITH LARGER OUTPUT ON RIGHT AND FLUID LOOKING SLIGHTLY CLOUDY COMPARED TO LEFT DRAINAGE. LAB SPECIMEN SENT FROM RIGHT PLEURX DRAIN. STERILE TECHNIQUE USED TO CLEAN AND REDRESS DRAINS. PATIENT PREMEDICATED WITH PAIN MEDS PRIOR TO DRAINAGE. DENIES PAIN AT THIS TIME. TELE SHOWING SINUS TACH WITH HR 90-110'S. HR UP TO 130'S WHEN UP TO BSC. BP ON SOFTER SIDE WITH MAPS ABOVE 65. DENIES DIZZINESS. DENIES ABDOMINAL PAIN/NAUSEA. VERY POOR APPEATITE. NUTRITION IN TO SPEAK WITH PATIENT THIS AM. USING BSC TO VOID. GREAT URINE OUTPUT. COMPLAINS OF RIGHT SIDED LUNG PAIN WHEN BREATHING IN. PAIN IMPROVED WITH PLEURX DRAINAGE. DENIES PAIN MEDS AT THIS TIME. GRADES 7 AND 8 VISITING TEACHER IN ROOM. IN AND UPDATED. ONCOLOGY CONSULT CALLED IN. MEDIPORT ACCESSED AND TKO NS INFUSING. ANTIBIOTICS INFUSED THIS AM. SPOKE WITH DR. HANKINS ON ORDERING HOME MEDS AND HGB LAB LEVELS. MED REC COMPLETED WITH HELP OF OVER PHONE. NO NEW ORDERS FOR HGB LAB, LABS ORDERED FOR AM. CALL LIGHT IN REACH. DENIES NEEDS AT THIS TIME. WILL CONTINUE TO MONITOR.
--- NOTE | 2022-03-30 18:06 | NUR ---
SHIFT SUMMARY: NO ACUTE CHANGES. PATIENT SITTING IN BED AT THIS TIME EATING DINNER. DENIES NEEDS FOR PAIN MEDICATIONS. NS RUNNING AT TKO. ANTIBIOTICS INFUSED THIS SHIFT. NO CHANGES IN TELE. REMAINS ON ROOM AIR. VITALS SIGNS REMAINS STABLE. SEE PREVIOUS NOTE FOR MORE UPDATES. DENIES NEEDS AT THIS TIME. CALL LIGHT IN REACH. WILL CONTINUE TO MONITOR AND REPORT OFF TO ONCOMING RN.
[2022-03-31 04:54] LABS: Hematocrit 20.7 % (33.0-51.0); Hemoglobin 6.7 g/dL (11.5-16.0); Mean Corpuscular HGB 33.2 pg (26.0-34.0); Mean Corpuscular HGB Conc 32.4 g/dL (31.5-36.5); Mean Corpuscular Volume 103 fL (80-100); Mean Platelet Volume 10.7 fL (9.1-12.4); NRBC ABSOLUTE 0.05 K/mm3 (0.00-0.02); NRBC Auto 0.2 /100 WBC (0.0-0.2); Platelet Count 144 K/mm3 (150-400); RDW Coefficient Variation 16.8 % (11.7-14.2); RDW Standard Deviation 63.2 fL (35.1-46.3); Red Blood Cell Count 2.02 M/mm3 (3.80-5.20); White Blood Cell Count 26.03 K/mm3 (4.00-11.30)
[2022-03-31 05:13] LABS: Bun/Creatinine Ratio 27.7 (12.0-20.0); Calcium, Blood 8.1 mg/dL (8.5-10.1); Creatinine, Blood 0.4 mg/dL (0.40-1.00); Potassium, Blood 3.1 mmol/L (3.5-5.5)
[2022-03-31 05:29] LABS: BAND PERCENT MAN 13 % (0-8); BASOPHILS PERCENT MAN 0 % (0-2); EOSINOPHILS PERCENT MAN 0 % (0-6); LYMPHOCYTES ABSOLUTE MAN 0.78 K/mm3 (0.84-5.20); LYMPHOCYTES PERCENT MAN 3 % (21-46); METAMYELOCYTE ABSOLUTE MAN 0.52 K/mm3 (0.00-0.00); METAMYELOCYTE PERCENT MAN 2 % (0-0); MONOCYTES ABSOLUTE MAN 0.52 K/mm3 (0.16-1.47); MONOCYTES PERCENT MAN 2 % (4-13); MYELOCYTE ABSOLUTE MAN 0.26 K/mm3 (0.00-0.00); MYELOCYTE PERCENT MAN 1 % (0-0); NEUTROPHILS ABSOLUTE MAN 23.94 K/mm3 (1.96-9.15); SEG NEUTROPHILS PERCENT MAN 79 % (41-73); TOTAL CELLS COUNTED 100
--- NOTE | 2022-03-31 06:19 | NUR ---
DENTAL SPECIALIST SUMMARY PT IS ALERT AND COMMUNICATING APPROPRIATELY W STAFF. PT MAINTAINED O2 SATS >92% ON 2L NC. BP WNL AND STABLE. TELE SHOWING SR 100-110'S THIS SHIFT. PT HAVING PAIN AROUND DRAIN SITES BUT DENIED ANY CP OR NAUSEA THIS SHIFT. PT ABLE TO SLEEP FOR MOST OF THE NIGHT. PT HAD LOW HGB <7 AND LOW K <3.5 THIS AM SO PROVIDER CONTACTED AND ORDERS GIVEN. WILL REPORT TO ONCOMING RN.
[2022-03-31 09:22] LABS: Automated BF WBC Count 1.403 K/mm3 (0-999); Body Fluid WBC Count 1403 /mm3 (0-999)
[2022-03-31 09:44] LABS: Albumin, Body Fluid 1.3 g/dL
[2022-03-31 09:52] LABS: RBC Count, Body Fluid 406 /mm3 (0-0)
[2022-03-31 09:53] LABS: Appearance, Body Fluid Hazy (Clear)
[2022-03-31 09:55] LABS: Glucose, Body Fluid 105 mg/dL
[2022-03-31 10:06] LABS: Lactate Dehydrogenase, Body Fl 548 U/L
[2022-03-31 10:08] LABS: Protein, Body Fluid 2.5 g/dL
--- NOTE | 2022-03-31 10:25 | NUR ---
AM NOTE: PATIENT ALERT AND ORIENTED X4. NEURO AT BASELINE. SBA TO BSC. OVERALL VERY WEAK. ON 2L NASAL CANNULA SATING ABOVE 95%. LUNGS SOUNDING COARSE WITH SOME CRACKLES IN BASES. BILATERAL PLEUREX DRAINS. DRESSING C/D/I. DENIES COUGH. SHALLOW BREATHS. DECREASED PAIN COMPARED TO YESTERDAY DAY SHIFT. SHARP PAIN WITH DEEP INHILATION. TELE SHOWING SINUS TACH WITH HR 90-110'S. HR UP TO 130'S WHEN UP TO BEDSIDE COMMODE. MEDICAL STATUS NO TELE THIS AFTERNOON. DENIES CHEST PAIN/PRESSURE. BP ON SOFTER SIDE. RECIEVEING ONE UNIT OF PRBC AT THIS TIME. DENIES ABDOMINAL PAIN/NAUSEA. UP TO BSC WITH SBA ASSIST. MEDIPORT WNL. CALL LIGHT IN REACH. DENIES NEEDS AT THIS TIME. WILL CONTINUE TO MONITOR.
[2022-03-31 10:58] LABS: Total Cell Count, Body Fluid 100
[2022-03-31 12:06] LABS: Vancomycin, Trough 9.2 ug/mL (5.0-10.0)
--- NOTE | 2022-03-31 13:14 | NUR ---
Spoke with Dr Haywood earlier this AM and discussed case. Pt resting in bed upon arrival. Pt appears dyspneic as evidenced by ability to speak only in 2-3 word sentences. Pt reports still reports pain with breathing and states needing to breath shallow to reduce severity of pain. Offered active listening as Pt reports feeling depressed. She states depression is due to thinking that she is not getting any better. Listened as she reports changing her code status to DNR this AM but has not told her yet as he is driving a friend of theirs to [place] for an appointment. Continued supportive listening and validated concerns. Pt also reports anxiety. Offered suggestions such as distraction techniques to assist with anxiety. Pt expresses appreciation of visit and is agreeable for continued Palliative Care visits. Spoke with Primary RN La and discussed case. Palliative Care will remain available for supportive and therapeutic visits.
[2022-03-31 13:27] LABS: Color, Body Fluid Yellow (None-Yellow)
--- NOTE | 2022-03-31 18:15 | NUR ---
SHIFT SUMMARY: NO ACUTE CHANGES THROUGHOUT SHIFT. MEDICAL STATUS NO TELE. VITAL SIGNS REMAINS STABLE. REPORTS PATIENT HAS HAD SOFTER BLOOD PRESSURE FOR A VERY LONG TIME. ACTH STIMULATION TEST COMPLETED AND RESULTS DISCUSSED WITH DR. HANKINS. PATIENT COMPLAINS OF MODERATE PAIN WHEN DEEP BREATHING. CONTINUALLY REASSESSED THROUGHOUT SHIFT AND PATIENT DENIED NEED FOR PAIN MEDICATIONS. EATING BETTER TODAY COMPARED TO PREVIOUS SHIFT. ANTIBIOTCS AND ONE UNIT OF PRBC INFUSED THIS SHIFT. MEDIPORT FLUSHING AND DRAWING WELL. NS TO TKO INFUSING INTO MEDIPORT. UP TO BSC WITH SBA. DENIES NEEDS AT THIS TIME. CALL LIGHT IN REACH. WILL CONTINUE TO MONITOR.
[2022-04-01 04:18] LABS: Hematocrit 25.8 % (33.0-51.0); Hemoglobin 8.5 g/dL (11.5-16.0); Mean Corpuscular HGB 31.7 pg (26.0-34.0); Mean Corpuscular HGB Conc 32.9 g/dL (31.5-36.5); Mean Platelet Volume 9.9 fL (9.1-12.4); NRBC ABSOLUTE 0.04 K/mm3 (0.00-0.02); NRBC Auto 0.1 /100 WBC (0.0-0.2); Platelet Count 126 K/mm3 (150-400); RDW Coefficient Variation 20.2 % (11.7-14.2); RDW Standard Deviation 70.8 fL (35.1-46.3); Red Blood Cell Count 2.68 M/mm3 (3.80-5.20); White Blood Cell Count 28.89 K/mm3 (4.00-11.30)
[2022-04-01 04:26] LABS: Mean Corpuscular Volume 96 fL (80-100)
[2022-04-01 04:40] LABS: Albumin, Blood 1.5 g/dL (3.4-5.0); Albumin/Globulin Ratio 0.4 (0.8-1.8); Bilirubin, Total 0.3 mg/dL (0.1-1.0); Bun/Creatinine Ratio 30.9 (12.0-20.0); Calcium, Blood 7.8 mg/dL (8.5-10.1); Creatinine, Blood 0.36 mg/dL (0.40-1.00); Globulin, Blood 3.4 g/dL (2.2-4.0); Percent Saturation 41.7 % (15.0-50.0); Potassium, Blood 4.4 mmol/L (3.5-5.5); Total Protein, Blood 4.9 g/dL (6.4-8.2)
[2022-04-01 05:16] LABS: BAND PERCENT MAN 17 % (0-8); BASOPHILS PERCENT MAN 0 % (0-2); EOSINOPHILS PERCENT MAN 0 % (0-6); LYMPHOCYTES ABSOLUTE MAN 0.86 K/mm3 (0.84-5.20); LYMPHOCYTES PERCENT MAN 3 % (21-46); MONOCYTES ABSOLUTE MAN 0.86 K/mm3 (0.16-1.47); MONOCYTES PERCENT MAN 3 % (4-13); NEUTROPHILS ABSOLUTE MAN 27.15 K/mm3 (1.96-9.15); SEG NEUTROPHILS PERCENT MAN 77 % (41-73); TOTAL CELLS COUNTED 100
--- NOTE | 2022-04-01 06:19 | NUR ---
SENIOR SECURITY ANALYST SUMMARY THE PT HAD NO OVERNIGHT EVENTS. O2 SATS >92% ON 2L NC. BP WNL AND STABLE. PT MEDICATED ONCE FOR PLEURITIC PAIN SHE SAID WAS WORSE W DEEP INSPIRATION. PT ABLE TO SLEEP MUCH OF THE NIGHT. WILL REPORT TO ONCOMING RN.
--- NOTE | 2022-04-01 17:33 | NUR ---
PT SUMMARY: PT HAS BEEN ALERT AND ORIENTED, PLEASANT AND COOPERATIVE FOR THE SHIFT. VITALS HAS BEEN STABLE, REMAINS ON 2L OF O2 VIA NASAL CANNULA, DESATS WITH ACTIVITY RECOVERS QUICK. POOR APPETITE DRINKS MOST OF ENSURE WITH MEALS. DENIES ANY CEHST PAIN OR PLEURITIC CHEST PAIN FOR THE SHIFT, PT HAD A SHOWER TODAY TOLERATED WELL SBA FOR TRANSFERS, USES BEDSIDE COMMODE FOR TOILETING. BILATERAL PLEUREX DRAIN REMAINED DRESSED AND IS INTACT PT STATED HER AND THE DRAINS AND CHANGED THE DRESSING EVERY 4-5 DAYS LAST TIME IT WAS DRAINED WAS COUPLE DAYS AGO. PLEURAL DRAIN CULTURE CAME BACK POSITIVE FOR MRSA INFECTION, PT ON VANCOMYCIN IV, ISOLATION PRECAUTION STARTED. DR HOPKINS AND DR GONZALEZ CAME TO SEE PT TODAY PLAN TO KEEP PT FOR ATLEAST COUPLE MORE DAYS FOR ANTIBIOTIC THERAPY. PT EDUCATED USE AND BENEFITS OF FLUTTER VALVE AND SPIROMETER PT WAS ABLE TO DEMONSTRATE USE, NO OTHER ISSUES TODAY, CAME IN TO VISIT PT UPDATED ABOUT PT'S STATUS. PT TO TRANSFER TO MEDICAL FLOOR RM 357, REPORT GIVEN TO NIK CRUZ, PT TO TRANSFER VIA WHEELCHAIR ACCOMPANIED BY PCT, ALL BELONGINGS SENT WITH THE PT
--- NOTE | 2022-04-01 18:46 | NUR ---
SHIFT SUMMARY PATIENT TRANSFER FROM PCU. A&OX4. CONTINENT OF URINE PER REPORT. SBA TO BSC. ON 2L NC. MEDIPORT PRESENT. NO BP OR BLOOD DRAWS ON LEFT SIDE. PATIENT ORIENTED TO ROOM. WILL CONTINUE TO MONITOR.
--- NOTE | 2022-04-01 18:49 | NUR ---
Review of plan of care with oncologist and pulmonolgist. Met with patietn to review symptoms. She is having less pain and air hunger no nausea. Still feels some fatigue and tired. Reviewed getting more care will ask for home health referral to assit with pleurex and to have PT. Asked Dr vallejo if I could start her on incentive spirometer. trained pt on how to use it and how to so some leg exercise to keep her stron and mobile. Pt demonstrated understanding or spirometer, exercise and pain managment.
--- NOTE | 2022-04-02 04:31 | NUR ---
SHIFT SUMMARY: PT IS A/OX4. ON CONTACT FOR MRSA IN THE BILAT PLEURX DRAINS. SHE IS A SBA TO THE BSC/BR. SHE HAS NS INFUSING TKO IN THE MEDIPORT. SHE DID NOT HAVE C/O OF PAIN OR SOB. CALL LIGHT IS WITHIN REACH.
[2022-04-02 05:19] LABS: Hemoglobin 8.9 g/dL (11.5-16.0); Mean Corpuscular HGB 31.2 pg (26.0-34.0); Mean Corpuscular HGB Conc 31.8 g/dL (31.5-36.5); Mean Corpuscular Volume 98 fL (80-100); Mean Platelet Volume 9.7 fL (9.1-12.4); NRBC ABSOLUTE 0.04 K/mm3 (0.00-0.02); NRBC Auto 0.2 /100 WBC (0.0-0.2); Platelet Count 138 K/mm3 (150-400); RDW Coefficient Variation 19.5 % (11.7-14.2); RDW Standard Deviation 71.7 fL (35.1-46.3); Red Blood Cell Count 2.85 M/mm3 (3.80-5.20); White Blood Cell Count 22.12 K/mm3 (4.00-11.30)
[2022-04-02 05:39] LABS: Calcium, Blood 8.4 mg/dL (8.5-10.1); Creatinine, Blood 0.35 mg/dL (0.40-1.00); Potassium, Blood 4.1 mmol/L (3.5-5.5)
[2022-04-02 05:45] LABS: BAND PERCENT MAN 18 % (0-8); BASOPHILS PERCENT MAN 0 % (0-2); EOSINOPHILS PERCENT MAN 0 % (0-6); LYMPHOCYTES ABSOLUTE MAN 0.66 K/mm3 (0.84-5.20); LYMPHOCYTES PERCENT MAN 3 % (21-46); MONOCYTES PERCENT MAN 5 % (4-13); MYELOCYTE ABSOLUTE MAN 0.22 K/mm3 (0.00-0.00); MYELOCYTE PERCENT MAN 1 % (0-0); NEUTROPHILS ABSOLUTE MAN 20.12 K/mm3 (1.96-9.15); SEG NEUTROPHILS PERCENT MAN 73 % (41-73); TOTAL CELLS COUNTED 100
--- NOTE | 2022-04-02 09:38 | NUR ---
Brief supportive visit this AM. Pt resting in bed and reports mild pain with respiratory effert that increases with deeper breathes. Pt reports using IS every 15 minutes. Pt agreeable to work with physical therapy to prevent decondition if appropriate. Pt reports no new concerns at this time. Spoke with Primary RN Deja and discussed case. Pt may benefit from PT order to assist with prevention of deconditioning. Palliative Care will remain available.
[2022-04-02 12:00] LABS: Vancomycin, Trough 11.9 ug/mL (5.0-10.0)
--- NOTE | 2022-04-02 18:53 | NUR ---
SHIFT SUMMARY PATIENT A&OX4. SBA TO BSC. ON 2L NC. C/O OF PAIN WHEN BREATHING, MEDICATED X1. MEDIPORT PRESENT. RECEIVING IV ANTIBIOTICS. PLUERX DRAINS COVERED WITH DRESSING, C/D/I. VSS. WILL CONTINUE TO MONITOR.
--- NOTE | 2022-04-03 06:51 | NUR ---
DIRECTOR PHARMACOVIGILANCE SUMMARY ADMITTED FOR PNA. PT IS A DNR. PLAN FOR WEEKS WORTH OF ABX THERAPY FOR MRSA IN THE PLEUR-X DRAINS. SHE WAS MEDICATED ONCE FOR BACK PAIN WITH IMPROVEMENT. NO LUNG PAIN REPORTED TONIGHT. THE PATIENT IS A SBA TO THE BEDSIDE COMMODE BUT REPORTS FEELING WEAK, DESPITE IMPROVEMENT IN ASSISTANCE. MEDIPORT LEFT INFUSING NS AT TKO. ON 2L BY NC. SHE IS BEING FOLLOWED BY DR GONZALEZ AND PULMONOLOGY.
--- NOTE | 2022-04-03 18:02 | NUR ---
SHIFT SUMMARY PATIENT A&OX4. SBA TO BSC. AMUBLATED WITH WALKER TO RESTROOM FOR SHOWER. BILATERAL PLUER-X DRAINS PRESENT AND COVERED WITH DRESSINGS C/D/I. RECEIVING IV ANTIBIOTICS.NO SIGNIFICANT EVENTS. WILL CONTINUE TO MONITOR.
--- NOTE | 2022-04-04 07:27 | NUR ---
SHIFT SUMMARY: NO ACUTE CHANGES, REPORTED BACK PAIN AT HS AND REQESTED ROXANOL. MED WAS GIVEN WITH GOOD EFFECT. UP TO THE BSC WITH SBA. MAUNTAINS SATS ABOVE 90% ON 2L NC. MULTIPLE SOFT FORMED BM'S AND VOIDING AN ORANGE COLORED URINE. PATIENT IS TACHYCARDIC AT BASELINE UP TO 120'S WITH ACTIVITY BUT RECOVER TO LOW 100'S QUICKLY.
[2022-04-04 11:47] LABS: Vancomycin, Trough 11.2 ug/mL (5.0-10.0)
[2022-04-04] MEDS ORDERED: RIFA300 PO (12:05)
[2022-04-04] MEDS ORDERED: VISBIOME 112.51 EACH PO (12:08)
[2022-04-04] MEDS ORDERED: VANCOMYCIN HCL750 M1 IV (12:08)
--- NOTE | 2022-04-04 16:24 | NUR ---
PT DISCHARGED THE PT VERBALIZED UNDERSTANDING OF THE DC INSTRUCTIONS. THE PT PRESCRIPTIONS FAXED TO [facility] REQUESTED. PT WAS REMINDED TO CALL HER PCP'S FOR A FOLLOW UP APPOINTMENT. THE PT WAS TRANSFERED VIA WHEELCHAIR ACCOMPANIED BY THE HOUSING INSPECTOR AND HER . PORTABLE OXYGEN WAS APPLIED.
== END 2022-04-04 15:46 | disposition home health service (06) | DRG 314 ==
LOC: ER 13:51 → MEDS 22:51 → PCU 22:51 → MEDS 04-01 17:55
PROVIDERS: Internal Medicine; Internal Medicine Critical Care Medicine; Physician Assistant; ADMIT Family Medicine
PROC: 3E03329 Introduction of Other Anti-infective into Peripheral Vein, Percutaneous Approach (ICD-10-PCS; 2022-03-29)
PROC: 30233N1 Transfusion of Nonautologous Red Blood Cells into Peripheral Vein, Percutaneous Approach (ICD-10-PCS; principal; 2022-03-31)
DX: T82.7XXA Infection and inflammatory reaction due to other cardiac and vascular devices, implants and grafts, initial encounter (principal); A41.02 Sepsis due to Methicillin resistant Staphylococcus aureus; E43 Unspecified severe protein-calorie malnutrition; Z66 Do not resuscitate; J18.9 Pneumonia, unspecified organism; A41.1 Sepsis due to other specified staphylococcus; G92.8 Other toxic encephalopathy; J91.0 Malignant pleural effusion; I31.3 Pericardial effusion (noninflammatory); Z20.822 Contact with and (suspected) exposure to COVID-19; E87.1 Hypo-osmolality and hyponatremia; Z68.1 Body mass index [BMI] 19.9 or less, adult; C78.02 Secondary malignant neoplasm of left lung; C78.01 Secondary malignant neoplasm of right lung; J43.9 Emphysema, unspecified; D63.8 Anemia in other chronic diseases classified elsewhere; C50.912 Malignant neoplasm of unspecified site of left female breast; D69.6 Thrombocytopenia, unspecified; E78.00 Pure hypercholesterolemia, unspecified; M54.50 Low back pain, unspecified; G89.29 Other chronic pain; M81.0 Age-related osteoporosis without current pathological fracture; G47.30 Sleep apnea, unspecified; M41.86 Other forms of scoliosis, lumbar region; M48.061 Spinal stenosis, lumbar region without neurogenic claudication; K44.9 Diaphragmatic hernia without obstruction or gangrene; Z85.72 Personal history of non-Hodgkin lymphomas; Z98.890 Other specified postprocedural states; Z90.12 Acquired absence of left breast and nipple; Z88.8 Allergy status to other drugs, medicaments and biological substances; Z88.5 Allergy status to narcotic agent; Z79.899 Other long term (current) drug therapy; Z79.52 Long term (current) use of systemic steroids; Z79.891 Long term (current) use of opiate analgesic; Q85.00 Neurofibromatosis, unspecified; Z85.028 Personal history of other malignant neoplasm of stomach; Z92.21 Personal history of antineoplastic chemotherapy; Z95.828 Presence of other vascular implants and grafts
CPT/HCPCS: 0241U; 36415; 36430; 71046; 71260; 80048; 80053; 80202; 80400; 81001; 82042; 82533; 82728; 82945; 83540; 83550; 83605; 83615; 83880; 84155; 84157; 84484; 85025; 86850; 86900; 86901; 86923; 87040; 87070; 87075; 87077; 87147; 87186; 87205; 89051; 93005; 93010; 93306; 94760; 96374-59; 96375-59; 97110; 97116; 97161; 99285-25; A9270; J0692; J0696; J0834; J1100; J1170; J1642; J1650; J1940; J2270; J2405; J3010; J3370; J7030; J7040; J7050; J7060; P9016; Q9967

== ENCOUNTER 2022-04-05 02:38 | Day surgery (SDC) | payer OTHER ==
[~2022-04-05 02:38] MED LIST changes: +MELATONIN5 M1 PO; +RIFA300 PO; +VANCOMYCIN HCL750 M1 IV
== END 2022-04-05 22:49 | disposition home or self-care (01) ==
LOC: ATC 02:38
DX: T85.79XA Infection and inflammatory reaction due to other internal prosthetic devices, implants and grafts, initial encounter (principal); B95.62 Methicillin resistant Staphylococcus aureus infection as the cause of diseases classified elsewhere; J43.9 Emphysema, unspecified; Z66 Do not resuscitate; Z88.5 Allergy status to narcotic agent; Z88.6 Allergy status to analgesic agent; Z79.899 Other long term (current) drug therapy
CPT/HCPCS: 96365; 96366; J1642; J3370; J7060

== ENCOUNTER 2022-04-06 00:17 | Day surgery (SDC) | payer OTHER | END 2022-04-06 10:00 | disposition home or self-care (01) | LOC: ATC 00:17 | DX: J86.9 Pyothorax without fistula (principal); T85.79XA Infection and inflammatory reaction due to other internal prosthetic devices, implants and grafts, initial encounter; B95.62 Methicillin resistant Staphylococcus aureus infection as the cause of diseases classified elsewhere; Z88.5 Allergy status to narcotic agent; Z88.6 Allergy status to analgesic agent; Z66 Do not resuscitate; M81.0 Age-related osteoporosis without current pathological fracture; C50.919 Malignant neoplasm of unspecified site of unspecified female breast | CPT/HCPCS: 96365; 96366; J1642; J3370; J7060 ==

== ENCOUNTER 2022-04-07 01:51 | Day surgery (SDC) | payer OTHER ==
[2022-04-07 09:21] LABS: Creatinine, Blood 0.42 mg/dL (0.40-1.00); Vancomycin, Trough 15.6 ug/mL (5.0-10.0)
== END 2022-04-07 11:42 | disposition home or self-care (01) ==
LOC: ATC 01:51
PROVIDERS: Internal Medicine
DX: T85.79XA Infection and inflammatory reaction due to other internal prosthetic devices, implants and grafts, initial encounter (principal); J86.9 Pyothorax without fistula; B95.62 Methicillin resistant Staphylococcus aureus infection as the cause of diseases classified elsewhere
CPT/HCPCS: 80202; 82565; 96365; 96366; J1642; J3370; J7060

== ENCOUNTER 2022-04-08 01:07 | Day surgery (SDC) | payer OTHER | END 2022-04-08 10:13 | disposition home or self-care (01) | LOC: ATC 01:07 | DX: T85.79XA Infection and inflammatory reaction due to other internal prosthetic devices, implants and grafts, initial encounter (principal); J86.9 Pyothorax without fistula; B95.62 Methicillin resistant Staphylococcus aureus infection as the cause of diseases classified elsewhere | CPT/HCPCS: 96365; 96366; J1642; J3370; J7060 ==

== ENCOUNTER 2022-04-09 08:16 | Day surgery (SDC) | payer OTHER | END 2022-04-09 10:20 | disposition home or self-care (01) | LOC: ATC 08:16 | DX: J86.9 Pyothorax without fistula (principal); B95.62 Methicillin resistant Staphylococcus aureus infection as the cause of diseases classified elsewhere; M81.0 Age-related osteoporosis without current pathological fracture; Z88.5 Allergy status to narcotic agent; Z88.6 Allergy status to analgesic agent; J18.9 Pneumonia, unspecified organism; I31.3 Pericardial effusion (noninflammatory); R60.1 Generalized edema; E87.1 Hypo-osmolality and hyponatremia | CPT/HCPCS: 96365; J1642; J3370; J7060 ==

== ENCOUNTER 2022-04-10 07:57 | Day surgery (SDC) | payer OTHER ==
[2022-04-10 08:47] LABS: Glomerular Filtration Rate 99 (60-); Vancomycin, Trough 23.6 ug/mL (5.0-10.0)
== END 2022-04-10 09:40 | disposition home or self-care (01) ==
LOC: ATC 07:57
PROVIDERS: Internal Medicine
DX: J86.9 Pyothorax without fistula (principal); B95.62 Methicillin resistant Staphylococcus aureus infection as the cause of diseases classified elsewhere; M81.0 Age-related osteoporosis without current pathological fracture; Z88.5 Allergy status to narcotic agent; Z88.6 Allergy status to analgesic agent; R60.1 Generalized edema; E87.1 Hypo-osmolality and hyponatremia
CPT/HCPCS: 36591; 80202; 82565; J1642

== ENCOUNTER 2022-04-11 01:48 | Day surgery (SDC) | payer OTHER ==
[~2022-04-11] VITALS: Ht 152.4 cm; Wt 42.0 kg
[2022-04-11 09:25] LABS: Creatinine, Blood 0.47 mg/dL (0.40-1.00); Vancomycin, Trough 11.3 ug/mL (5.0-10.0)
== END 2022-04-11 11:01 | disposition home or self-care (01) ==
LOC: ATC 01:48
PROVIDERS: Internal Medicine Hematology & Oncology
DX: J86.9 Pyothorax without fistula (principal); B95.62 Methicillin resistant Staphylococcus aureus infection as the cause of diseases classified elsewhere; T85.79XA Infection and inflammatory reaction due to other internal prosthetic devices, implants and grafts, initial encounter; Z88.5 Allergy status to narcotic agent; Z88.8 Allergy status to other drugs, medicaments and biological substances; Z66 Do not resuscitate
CPT/HCPCS: 80202; 82565; 96365; J1642; J3370; J7060

== ENCOUNTER 2022-04-12 00:54 | Day surgery (SDC) | payer OTHER | END 2022-04-12 10:14 | disposition home or self-care (01) | LOC: ATC 00:54 | DX: J86.9 Pyothorax without fistula (principal); B95.62 Methicillin resistant Staphylococcus aureus infection as the cause of diseases classified elsewhere; C50.919 Malignant neoplasm of unspecified site of unspecified female breast | CPT/HCPCS: 96365; J1642; J3370; J7060 ==

== ENCOUNTER 2022-04-13 08:24 | Day surgery (SDC) | payer OTHER ==
[2022-04-13 09:18] LABS: Vancomycin, Trough 15.3 ug/mL (5.0-10.0)
== END 2022-04-13 10:46 | disposition home or self-care (01) ==
LOC: ATC 08:24
PROVIDERS: Internal Medicine
DX: T85.79XA Infection and inflammatory reaction due to other internal prosthetic devices, implants and grafts, initial encounter (principal); J86.9 Pyothorax without fistula; B95.62 Methicillin resistant Staphylococcus aureus infection as the cause of diseases classified elsewhere
CPT/HCPCS: 80202; 82565; 96365; J1642; J3370; J7060

== ENCOUNTER 2022-04-15 02:17 | Day surgery (SDC) | payer OTHER | END 2022-04-15 23:13 | disposition home or self-care (01) | LOC: ATC 02:17 | DX: J86.9 Pyothorax without fistula (principal); B95.62 Methicillin resistant Staphylococcus aureus infection as the cause of diseases classified elsewhere; Z92.21 Personal history of antineoplastic chemotherapy; Z85.3 Personal history of malignant neoplasm of breast; Z88.6 Allergy status to analgesic agent; Z88.5 Allergy status to narcotic agent; Z88.8 Allergy status to other drugs, medicaments and biological substances | CPT/HCPCS: 96365; J1642; J3370; J7060 ==

== ENCOUNTER 2022-04-16 08:17 | Day surgery (SDC) | payer OTHER ==
--- NOTE | 2022-04-16 09:21 | NUR ---
0917: ABLE TO ASPIRATE AND WASTE 5 ML BLOOD, SAMPLE TAKENN AND SENT TO LAB ([facility].) PT WATCHING TV. WILL AWAIT LAB RESULTS TO DETERMINE THE DOSE OF VANCO PT WILL RECEIVE TODAY.
[2022-04-16 09:46] LABS: Creatinine, Blood 0.54 mg/dL (0.40-1.00); Vancomycin, Trough 16.7 ug/mL (5.0-10.0)
== END 2022-04-16 11:05 | disposition home or self-care (01) ==
LOC: ATC 08:17
PROVIDERS: Internal Medicine
DX: T85.79XA Infection and inflammatory reaction due to other internal prosthetic devices, implants and grafts, initial encounter (principal); J86.9 Pyothorax without fistula; B95.62 Methicillin resistant Staphylococcus aureus infection as the cause of diseases classified elsewhere
CPT/HCPCS: 80202; 82565; J1642; J3370; J7060

== ENCOUNTER 2022-04-17 08:20 | Day surgery (SDC) | payer OTHER | END 2022-04-17 09:38 | disposition home or self-care (01) | LOC: ATC 08:20 | DX: T85.79XA Infection and inflammatory reaction due to other internal prosthetic devices, implants and grafts, initial encounter (principal); J86.9 Pyothorax without fistula; B95.62 Methicillin resistant Staphylococcus aureus infection as the cause of diseases classified elsewhere | CPT/HCPCS: J1642; J3370; J7060 ==

== ENCOUNTER 2022-04-18 02:12 | Day surgery (SDC) | payer OTHER | END 2022-04-18 09:43 | disposition home or self-care (01) | LOC: ATC 02:12 | DX: T85.79XA Infection and inflammatory reaction due to other internal prosthetic devices, implants and grafts, initial encounter (principal); J86.9 Pyothorax without fistula; B95.62 Methicillin resistant Staphylococcus aureus infection as the cause of diseases classified elsewhere | CPT/HCPCS: J1642; J3370; J7060 ==

== ENCOUNTER 2022-04-19 00:37 | Day surgery (SDC) | payer OTHER ==
[2022-04-19 09:14] LABS: Creatinine, Blood 0.49 mg/dL (0.40-1.00); Vancomycin, Trough 15.9 ug/mL (5.0-10.0)
== END 2022-04-19 10:49 | disposition home or self-care (01) ==
LOC: ATC 00:37
PROVIDERS: Internal Medicine
DX: J86.9 Pyothorax without fistula (principal); B95.62 Methicillin resistant Staphylococcus aureus infection as the cause of diseases classified elsewhere; Z85.9 Personal history of malignant neoplasm, unspecified; Z88.6 Allergy status to analgesic agent; Z88.5 Allergy status to narcotic agent; Z88.8 Allergy status to other drugs, medicaments and biological substances
CPT/HCPCS: 80202; 82565; 96365; J1642; J3370; J7060

== ENCOUNTER 2022-04-20 01:55 | Day surgery (SDC) | payer OTHER | END 2022-04-20 09:50 | disposition home or self-care (01) | LOC: ATC 01:55 | DX: T85.79XA Infection and inflammatory reaction due to other internal prosthetic devices, implants and grafts, initial encounter (principal); J86.9 Pyothorax without fistula; B95.62 Methicillin resistant Staphylococcus aureus infection as the cause of diseases classified elsewhere | CPT/HCPCS: J1642; J3370; J7060 ==

== ENCOUNTER 2022-04-21 01:46 | Day surgery (SDC) | payer OTHER | END 2022-04-21 09:50 | disposition home or self-care (01) | LOC: ATC 01:46 | DX: J86.9 Pyothorax without fistula (principal); B95.62 Methicillin resistant Staphylococcus aureus infection as the cause of diseases classified elsewhere; C50.912 Malignant neoplasm of unspecified site of left female breast; C79.70 Secondary malignant neoplasm of unspecified adrenal gland; Z96.89 Presence of other specified functional implants; Z99.81 Dependence on supplemental oxygen; Z88.5 Allergy status to narcotic agent; Z88.8 Allergy status to other drugs, medicaments and biological substances | CPT/HCPCS: 96365; J1642; J3370; J7060 ==

== ENCOUNTER 2022-04-24 08:22 | Day surgery (SDC) | payer OTHER ==
[2022-04-24 08:59] LABS: BASOPHILS ABSOLUTE AUTO 0.03 K/mm3 (0.00-0.23); BASOPHILS PERCENT AUTO 1 % (0-2); EOSINOPHILS ABSOLUTE AUTO 0.19 K/mm3 (0.00-0.68); EOSINOPHILS PERCENT AUTO 4 % (0-6); Hematocrit 26.5 % (33.0-51.0); Hemoglobin 8.5 g/dL (11.5-16.0); IMMATURE GRAN ABSOLUTE AUTO 0.02 K/mm3 (0.00-0.10); IMMATURE GRAN PERCENT AUTO 1 % (0-1); LYMPHOCYTES ABSOLUTE AUTO 0.73 K/mm3 (0.84-5.20); LYMPHOCYTES PERCENT AUTO 17 % (21-46); MONOCYTES PERCENT AUTO 11 % (4-13); Mean Corpuscular HGB 30.6 pg (26.0-34.0); Mean Corpuscular HGB Conc 32.1 g/dL (31.5-36.5); Mean Corpuscular Volume 95 fL (80-100); Mean Platelet Volume 8.6 fL (9.1-12.4); NEUTROPHILS ABSOLUTE AUTO 2.96 K/mm3 (1.96-9.15); NEUTROPHILS PERCENT AUTO 67 % (41-73); Platelet Count 296 K/mm3 (150-400); RDW Coefficient Variation 16.1 % (11.7-14.2); RDW Standard Deviation 56.8 fL (35.1-46.3); Red Blood Cell Count 2.78 M/mm3 (3.80-5.20); White Blood Cell Count 4.43 K/mm3 (4.00-11.30)
== END 2022-04-24 09:51 | disposition home or self-care (01) ==
LOC: ATC 08:22
PROVIDERS: Internal Medicine Critical Care Medicine
DX: T85.79XA Infection and inflammatory reaction due to other internal prosthetic devices, implants and grafts, initial encounter (principal); J91.0 Malignant pleural effusion; Z88.5 Allergy status to narcotic agent; Z88.6 Allergy status to analgesic agent
CPT/HCPCS: 85025; 96365; J1642; J3370; J7060

== ENCOUNTER 2022-04-25 03:59 | Day surgery (SDC) | payer OTHER | END 2022-04-25 09:45 | disposition home or self-care (01) | LOC: ATC 03:59 | DX: J86.9 Pyothorax without fistula (principal); T85.79XA Infection and inflammatory reaction due to other internal prosthetic devices, implants and grafts, initial encounter | CPT/HCPCS: 96365; J1642; J3370 ==

== ENCOUNTER → 2022-04-26 | Outpatient (CLI) | payer OTHER | END | disposition home or self-care (01) | LOC: LAB SHORT 09:00 → LAB 09:00 | DX: J91.0 Malignant pleural effusion (principal) | CPT/HCPCS: 87070; 87075; 87205 ==

== ENCOUNTER 2022-05-03 10:07 | Day surgery (SDC) | payer OTHER ==
[2022-05-03 10:29] LABS: BASOPHILS ABSOLUTE AUTO 0.03 K/mm3 (0.00-0.23); BASOPHILS PERCENT AUTO 1 % (0-2); EOSINOPHILS ABSOLUTE AUTO 0.19 K/mm3 (0.00-0.68); EOSINOPHILS PERCENT AUTO 5 % (0-6); Hematocrit 26.5 % (33.0-51.0); Hemoglobin 8.5 g/dL (11.5-16.0); IMMATURE GRAN ABSOLUTE AUTO 0.01 K/mm3 (0.00-0.10); IMMATURE GRAN PERCENT AUTO 0 % (0-1); LYMPHOCYTES ABSOLUTE AUTO 0.92 K/mm3 (0.84-5.20); LYMPHOCYTES PERCENT AUTO 22 % (21-46); MONOCYTES ABSOLUTE AUTO 0.38 K/mm3 (0.16-1.47); MONOCYTES PERCENT AUTO 9 % (4-13); Mean Corpuscular HGB 30.2 pg (26.0-34.0); Mean Corpuscular HGB Conc 32.1 g/dL (31.5-36.5); Mean Corpuscular Volume 94 fL (80-100); Mean Platelet Volume 8.4 fL (9.1-12.4); NEUTROPHILS PERCENT AUTO 64 % (41-73); Platelet Count 205 K/mm3 (150-400); RDW Coefficient Variation 15.1 % (11.7-14.2); RDW Standard Deviation 52.8 fL (35.1-46.3); Red Blood Cell Count 2.81 M/mm3 (3.80-5.20); White Blood Cell Count 4.23 K/mm3 (4.00-11.30)
[2022-05-03 10:53] LABS: Albumin, Blood 2.4 g/dL (3.4-5.0); Albumin/Globulin Ratio 0.6 (0.8-1.8); Bilirubin, Total 0.2 mg/dL (0.1-1.0); Bun/Creatinine Ratio 28.9 (12.0-20.0); Creatinine, Blood 0.55 mg/dL (0.40-1.00); Globulin, Blood 3.7 g/dL (2.2-4.0); Potassium, Blood 3.4 mmol/L (3.5-5.5); Total Protein, Blood 6.1 g/dL (6.4-8.2)
== END 2022-05-03 10:25 | disposition home or self-care (01) ==
LOC: ATC 10:07
PROVIDERS: Internal Medicine Hematology & Oncology
DX: C50.912 Malignant neoplasm of unspecified site of left female breast (principal); C79.70 Secondary malignant neoplasm of unspecified adrenal gland; Z88.5 Allergy status to narcotic agent; Z88.6 Allergy status to analgesic agent
CPT/HCPCS: 36591; 80053; 85025; J1642

== ENCOUNTER 2022-05-13 01:33 | Day surgery (SDC) | payer OTHER | END 2022-05-13 10:32 | disposition home or self-care (01) | LOC: ATC 01:33 | DX: C50.912 Malignant neoplasm of unspecified site of left female breast (principal); G47.30 Sleep apnea, unspecified; M54.9 Dorsalgia, unspecified; G89.29 Other chronic pain; Z88.5 Allergy status to narcotic agent; Z88.6 Allergy status to analgesic agent; Z79.899 Other long term (current) drug therapy | CPT/HCPCS: J1642 ==

== ENCOUNTER 2022-06-27 07:22 | Inpatient (IN) | payer OTHER ==
[~2022-06-27] VITALS: Ht 152.4 cm; Wt 41.4 kg
[2022-06-27 09:48] LABS: BASOPHILS ABSOLUTE AUTO 0.01 K/mm3 (0.00-0.23); BASOPHILS PERCENT AUTO 0 % (0-2); EOSINOPHILS PERCENT AUTO 0 % (0-6); Hematocrit 47.9 % (33.0-51.0); Hemoglobin 15.2 g/dL (11.5-16.0); IMMATURE GRAN ABSOLUTE AUTO 0.03 K/mm3 (0.00-0.10); IMMATURE GRAN PERCENT AUTO 1 % (0-1); LYMPHOCYTES ABSOLUTE AUTO 0.68 K/mm3 (0.84-5.20); LYMPHOCYTES PERCENT AUTO 30 % (21-46); MONOCYTES ABSOLUTE AUTO 0.16 K/mm3 (0.16-1.47); MONOCYTES PERCENT AUTO 7 % (4-13); Mean Corpuscular HGB 28.1 pg (26.0-34.0); Mean Corpuscular HGB Conc 31.7 g/dL (31.5-36.5); Mean Corpuscular Volume 89 fL (80-100); Mean Platelet Volume 10.3 fL (9.1-12.4); NEUTROPHILS ABSOLUTE AUTO 1.37 K/mm3 (1.96-9.15); NEUTROPHILS PERCENT AUTO 61 % (41-73); NRBC ABSOLUTE 0.02 K/mm3 (0.00-0.02); NRBC Auto 0.9 /100 WBC (0.0-0.2); RDW Coefficient Variation 13.8 % (11.7-14.2); RDW Standard Deviation 44.7 fL (35.1-46.3); Red Blood Cell Count 5.41 M/mm3 (3.80-5.20); White Blood Cell Count 2.25 K/mm3 (4.00-11.30)
[2022-06-27 09:50] LABS: Platelet Count 37 K/mm3 (150-400)
[2022-06-27 10:00] LABS: Magnesium, Blood 1.8 mg/dL (1.6-2.4); Phosphorus, Blood 4.1 mg/dL (2.5-4.9)
[2022-06-27 10:18] LABS: Albumin, Blood 2.8 g/dL (3.4-5.0); Albumin/Globulin Ratio 0.7 (0.8-1.8); Bilirubin, Total 0.5 mg/dL (0.1-1.0); Bun/Creatinine Ratio 36.2 (12.0-20.0); Calcium, Blood 15.7 mg/dL (8.5-10.1); Creatinine, Blood 0.94 mg/dL (0.40-1.00); Globulin, Blood 3.9 g/dL (2.2-4.0); Potassium, Blood 4.5 mmol/L (3.5-5.5); Total Protein, Blood 6.7 g/dL (6.4-8.2)
--- NOTE | 2022-06-28 05:07 | NUR ---
Summary: Patient very weak getting out of bed 1 person stand and pivot to the commode. Patient having urine frequency needing to get up every 30 minutes. Placed patient on pure wic so she would be able to get more rest tonight. Frequently checked patient breif. Repositioned patient in bed with pillows throughout night. Calcium still elevated but trending down. Patient confused oriented x2 this evening. Consult order in for palliative team. Left message on [facility] for them. Patient woke up and had a pudding cup this morning. Mild pain in patient abdomen RUQ.
[2022-06-28 05:18] LABS: Hematocrit 25.9 % (33.0-51.0); Hemoglobin 8.4 g/dL (11.5-16.0); Mean Corpuscular HGB 29.5 pg (26.0-34.0); Mean Corpuscular HGB Conc 32.4 g/dL (31.5-36.5); Mean Corpuscular Volume 91 fL (80-100); Mean Platelet Volume 10.9 fL (9.1-12.4); NRBC ABSOLUTE 0.02 K/mm3 (0.00-0.02); NRBC Auto 0.7 /100 WBC (0.0-0.2); RDW Coefficient Variation 14.1 % (11.7-14.2); Red Blood Cell Count 2.85 M/mm3 (3.80-5.20); White Blood Cell Count 3.04 K/mm3 (4.00-11.30)
[2022-06-28 05:31] LABS: Platelet Count 42 K/mm3 (150-400)
[2022-06-28 05:51] LABS: Albumin, Blood 2.2 g/dL (3.4-5.0); Albumin/Globulin Ratio 0.6 (0.8-1.8); Bilirubin, Total 0.5 mg/dL (0.1-1.0); Bun/Creatinine Ratio 37.8 (12.0-20.0); Calcium, Blood 12.9 mg/dL (8.5-10.1); Creatinine, Blood 0.64 mg/dL (0.40-1.00); Globulin, Blood 3.6 g/dL (2.2-4.0); Potassium, Blood 4.2 mmol/L (3.5-5.5); Total Protein, Blood 5.8 g/dL (6.4-8.2)
[2022-06-28 10:57] LABS: Ferritin, Serum 1974 ng/mL (8-252); Iron Serum 163 ug/dL (50-170); Percent Saturation 99.4 % (15.0-50.0); Total Iron Binding Capacity 164 ug/dL (250-450)
[2022-06-28 12:23] LABS: Source, Urine Fem Cath
[2022-06-28 12:31] LABS: Appearance, Urine Clear (Clear); Bilirubin, Urine Neg (Neg); Blood, Urine 1+ (Neg); Glucose Qualitative, Urine Neg (Neg); Ketones, Urine 2+ (Neg); Leukocyte Esterase, Urine 2+ (Neg); Nitrite, Urine Neg (Neg); Protein, Urine Neg (Neg); Specific Gravity, Urine 1.015 (1.003-1.022); Urobilinogen, Urine NORM (Normal)
[2022-06-28 12:46] LABS: Color, Urine Pale Yellow (P-Yellow)
[2022-06-28 12:47] LABS: Bacteria Many /hpf; Red Blood Cells, Urine 0-2 /hpf (0-2); Squamous Epithelial Cells Rare /hpf (Few); White Blood Cells, Urine 25-50 /hpf (0-5)
--- NOTE | 2022-06-28 17:46 | NUR ---
SHIFT SUMMARY NO ACUTE CHANGES TODAY, HER MENTATION HAS IMPROVED SLIGHTLY. SHE HAS BEEN ABLE TO ANSWER MORE QUESTIONS AND VERBALIZE HER REQUESTS. HAS BEEN AT THE BS A COUPLE TIMES TODAY. SHE ALSO APPEARS TO BE EATING MORE TODAY THAN YESTERDAY. SHE WENT FOR A CT SCAN TODAY. SHE ALSO HAS A PUR WICK APPLIED. HER PLEURX DRAINS WERE DRAINED TODAY WITH LITTLE OUTPUT. BED PLACED IN THE LOWEST POSITION AND CALL LIGHT WITHIN REACH.
--- NOTE | 2022-06-28 19:10 | NUR ---
Asked to attemt to drain a smple from pleurex. accessed right side drain. only a few MML in line would not drain to suction. Gave it some time but to painful for patient and starting to cought and get short of breath. Did not try the other side due to symptoms. Fluide pail yellow did not look puerulent. Fibrin noted. clean dressings placed. previous dresseing had heavy gauze reduces some of the kike will reassess daily.
--- NOTE | 2022-06-29 04:03 | NUR ---
SHIFT SUMMARY ADMITTED FOR HYPERCALCEMIA. FULL CODE. TELEMETRY: TACHY @[address] SHE IS INCONTINENT. BILATERAL PLEURIX DRAINS. MEDIPORT IS ACCESSED. IV FLUIDS INFUSING ORDERED. IV ANTIB RX ARE SCHEDULED. RX CRUSHED IN APPLESAUCE. 2 LPM O2 VIA NC IS BASELINE. 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 REGULAR DIET. SHE SEES DR. GONZALEZ OUTPT.
[2022-06-29 05:29] LABS: Hematocrit 28.4 % (33.0-51.0); Hemoglobin 8.7 g/dL (11.5-16.0); Mean Corpuscular HGB 28.4 pg (26.0-34.0); Mean Corpuscular HGB Conc 30.6 g/dL (31.5-36.5); Mean Corpuscular Volume 93 fL (80-100); Mean Platelet Volume 10.6 fL (9.1-12.4); NRBC ABSOLUTE 0.03 K/mm3 (0.00-0.02); NRBC Auto 1.1 /100 WBC (0.0-0.2); RDW Coefficient Variation 14.5 % (11.7-14.2); RDW Standard Deviation 48.6 fL (35.1-46.3); Red Blood Cell Count 3.06 M/mm3 (3.80-5.20); White Blood Cell Count 2.76 K/mm3 (4.00-11.30)
[2022-06-29 05:42] LABS: Platelet Count 40 K/mm3 (150-400)
[2022-06-29 06:11] LABS: Magnesium, Blood 1.2 mg/dL (1.6-2.4)
[2022-06-29 06:14] LABS: Albumin, Blood 2.2 g/dL (3.4-5.0); Anion Gap 13 mmol/L (6-16); Blood Urea Nitrogen 17 mg/dL (8-24); Bun/Creatinine Ratio 27.5 (12.0-20.0); CO2, Blood 22 mmol/L (21-32); Chloride, Blood 114 mmol/L (98-108); Creatinine, Blood 0.62 mg/dL (0.40-1.00); Glomerular Filtration Rate 94 (60-); Glucose, Blood 79 mg/dL (70-99); Potassium, Blood 3.2 mmol/L (3.5-5.5); Sodium, Blood 149 mmol/L (136-145)
[2022-06-29 06:16] LABS: Phosphorus, Blood 1.1 mg/dL (2.5-4.9)
--- NOTE | 2022-06-29 11:18 | NUR ---
Therputicvisit with pt and . They just spoke with dr vega and are grieving. will continue to monitor and assess and assist with plan.
--- NOTE | 2022-06-29 18:00 | NUR ---
SHIFT SUMMARY PT HAD A VISIT FROM HER ONCOLOGIST TODAY. AFTER THE CONSULT, THE FAMILY DECIDED TO CHANGE THE PT'S STATUS TO DNR AND COMFORT CARE. THE ORDER CHANGES ARE IN THE CHART. PT STATES SHE HAS NO PAIN AT THIS TIME. SHE IS RESTING COMFORTABLY AND SLEEPING. HER HAS BEEN AT THE BS TODAY. BED PLACED IN THE LOWEST POSITION AND CALL LIGHT PLACED WITHIN REACH.
--- NOTE | 2022-06-30 04:07 | NUR ---
SHIFT SUMMARY ADMITTED FOR HYPERCALCEMIA. DNR CODE. COMFORT CARE. PLAN IS FOR DC HOME ON HOSPICE WITH FAMILY. PT HAS HX OF BREAST/LUNG CANCER W/METS TO LIVER & KIDNEYS. 2 LPM O2 HERE AND AT BASELINE. SHE IS CURRENTLY ON BEDREST. SHE DENIES PAIN OR DISCOMFORT. NO S/SX OF PAIN ARE DISCERNABLE. MEDIPORT IS ACCESSED AND INFUSING TKO
--- NOTE | 2022-06-30 05:59 | NUR ---
PT STATUS PT DID STATE THIS MORNING THAT SHE IS IN PAIN. I DID START OUT WITH THE SMALLEST DOSE OF ROXANOL, AND WE WILL WORK UP FROM THERE IF REQUIRED. SHE IS DRINKING WATER. SHE HOLDS A SMALL MOUTHFUL OF IT IN HER MOUTH AND SLOWLY INGESTS IT SO SHE WON'T CHOKE ON IT.
--- NOTE | 2022-06-30 09:11 | NUR ---
DR ABREU IN ROOM WITH PATIENT, PATIENT MAKES NEEDS KNOWN, COMFORT CARE ONLY, POSSIBLE DISCHARGE TODAY WITH HOSPICE, PATIENT IN NO DISTRESS
--- NOTE | 2022-06-30 11:31 | NUR ---
patient transported via stretcher to home with hospice, removed mediport access, patient continually educated on the mediport access not being needed now, clarified with nursing supervisor electron tube processing nick singleton and case management
== END 2022-06-30 11:31 | disposition hospice, home (50) | DRG 640 ==
LOC: ER 07:22 → MEDS 12:46
PROVIDERS: Emergency Medicine; Internal Medicine; Nurse Practitioner Acute Care; Physician Assistant; ADMIT Internal Medicine
DX: E83.52 Hypercalcemia (principal); A41.89 Other specified sepsis; E43 Unspecified severe protein-calorie malnutrition; N39.0 Urinary tract infection, site not specified; E87.0 Hyperosmolality and hypernatremia; C78.7 Secondary malignant neoplasm of liver and intrahepatic bile duct; C79.72 Secondary malignant neoplasm of left adrenal gland; C79.71 Secondary malignant neoplasm of right adrenal gland; I31.39 Other pericardial effusion (noninflammatory); Z68.1 Body mass index [BMI] 19.9 or less, adult; B96.1 Klebsiella pneumoniae [K. pneumoniae] as the cause of diseases classified elsewhere; E87.6 Hypokalemia; E83.42 Hypomagnesemia; E83.39 Other disorders of phosphorus metabolism; D72.819 Decreased white blood cell count, unspecified; D69.6 Thrombocytopenia, unspecified; R79.89 Other specified abnormal findings of blood chemistry; D63.1 Anemia in chronic kidney disease; G89.4 Chronic pain syndrome; Z85.3 Personal history of malignant neoplasm of breast; Z90.12 Acquired absence of left breast and nipple; Z92.3 Personal history of irradiation; Z92.21 Personal history of antineoplastic chemotherapy; M81.0 Age-related osteoporosis without current pathological fracture; Z98.890 Other specified postprocedural states; Z88.5 Allergy status to narcotic agent; Z88.6 Allergy status to analgesic agent; R62.7 Adult failure to thrive; E78.00 Pure hypercholesterolemia, unspecified; Z79.899 Other long term (current) drug therapy; E86.0 Dehydration
CPT/HCPCS: 36415; 71046; 71260; 74177; 80053; 80069; 81001; 82306; 82310; 82607; 82652; 82728; 82746; 83540; 83550; 83735; 83880; 83970; 84100; 84145; 84443; 84484; 85025; 85027; 87040; 87077; 87086; 87186; 93005; 93010; 93306; 96361; 96372; 96374; 99285-25; A9270; J0630; J1642; J1940; J2270; J2543; J3370; J3475; J3489; J7030; J7050; J7060; J7120; Q9967